=== PATIENT | male | born 1945 | race Caucasian/White ===

== ENCOUNTER 2021-01-11 14:19 | Emergency (ER) | payer MEDICARE, SELFPAY ==
[2021-01-11 14:54] VITALS: BP 136/66; PULSE 73; O2SAT 98; BMI 31.6
--- NOTE | 2021-01-11 15:32 | ED.MALEGU ---
HPI - Male Genitourinary General Chief complaint: Urogenital-Male Stated complaint: UNABLE TO URINATED Time Seen by Provider: 01/11/21 14:40 Source: certified court interpreter Mode of arrival: ambulatory Limitations: language barrier History of Present Illness HPI Narrative: 75-year-old male with a past medical history of hypertension, diabetes here with complaints of abrasions to his penis for 2 weeks. Patient tells me he has been cleaning the area with hydrogen peroxide or alcohol. Does report some slight bleeding from the abrasions and when he urinates it does burn. Patient denies any penile discharge, testicular pain or swelling, abdominal pain, difficulty urinating, fevers or chills. Related Data Previous Rx's Medication Instructions Recorded clotrimazole 1 % topical cream 1 appl TOPICAL BID #30 g 01/11/21 mupirocin 2 % topical ointment 1 appl TOPICAL BID #22 g 01/11/21 Allergies Allergy/AdvReac Type Severity Reaction Status Date / Time No Known Allergies Allergy Unverified 11/16/19 15:03 [No Known Allergies*] Review of Systems Review of Systems: Yes all other systems are reviewed and are negative Constitutional: Constitutional: Reports no additional constitutional complaints, Denies body ache(s), Denies chills, Denies fever(s), Denies headache(s) and Denies weakness Eyes: Eyes: Reports no additional eye complaints and Denies change in vision ENT: Reports system reviewed and no additional complaints, except as documented, Denies dizziness, Denies headache(s), Denies nasal congestion, Denies nasal discharge and Denies neck pain Cardiovascular: Cardiovascular: Reports no additional cardiovascular complaints, Denies chest pain, Denies leg edema and Denies dyspnea Respiratory: Respiratory: Reports no additional respiratory complaints, Denies cough and Denies dyspnea Gastrointestinal: Gastrointestinal: Reports no additional gastrointestinal complaints, Denies abdominal pain, Denies diarrhea, Denies nausea and Denies vomiting Genitourinary: Genitourinary: Denies urinary incontinence Musculoskeletal: Musculoskeletal: Reports no additional musculoskeletal complaints, Denies back pain, Denies arthralgias, Denies joint swelling, Denies neck pain, Denies numbness and Denies tingling Integumentary/Breasts: Skin/Breast: Reports system reviewed and no additional complaints, except as docu and Reports rash Neurologic: Reports system reviewed and no additional complaints, except as documented, Denies Abnormal speech present, Denies dizziness, Denies headache(s), Denies numbness, Denies tingling and Denies weakness PMFSH Past Medical History Attestation statement: The following information was validated with the patient. Source: old records reviewed and nursing notes reviewed Medical History Diabetes mellitus type 1 Hypertension Social History Social History Advance Directives: No Advance Directives Information Provided: Yes Physical Exam Vital Signs: Vital Signs: Last Vital Signs Pulse 73 01/11/21 14:54 BP 136/66 01/11/21 14:54 Pulse Ox 98 01/11/21 14:54 Body Mass Index 31.6 Const: General: cooperative, healthy appearing, comfortable and no acute distress Orientation/consciousness: patient oriented x3 Limitations: no limitations HENMT: Head: Yes normal to inspection Ears: hearing grossly normal bilaterally General nose exam: Normal external nose present Face and sinus: Yes normal facial exam Mouth: Normal oral and palatal mucosa present Throat: Yes posterior oropharynx normal Eyes: General: appearance normal, both eyes and all related structures Pupils: Equal, round and reactive pupils present Neck: Neck: Yes normal visual inspection Chest: Chest palpation & inspection: normal inspection of the chest Resp: Effort & Inspection: normal respiratory effort Auscultation: clear to auscultation bilaterally Cardio: Rate: regular rate Rhythm: regular rhythm Peripheral pulses: Peripheral pulses 2+ throughout GI: Inspection: Yes normal to inspection Palpation (GI): Soft to palpation and nontender Auscultation: normal bowel sounds : Other: To the meatus there is mild erythema, swelling, excoriation to the skin with scant thick white yeast like Penis: uncircumcised Back/Spine/Pelvis: Thoracic/Lumbar Spine: thoracic and lumbar spine normal to inspection Skin: General skin exam: no rashes or lesions noted Neuro: General: patient oriented x3, no focal motor deficits and normal sensation to monofilament Cranial nerves: Yes Equal, round and reactive pupils present Cognition (Neuro): normal cognition Speech: No Abnormal speech present Gait exam (Neuro): Normal gait present Motor exam (neuro): 5/5 motor strength present throughout Extrem: General: Yes normal to inspection Course Course Course Narrative: Exam is consistent with balanitis. Patient has no urinary symptoms or difficulty urinating. Nontoxic-appearing. The balanitis is mild. Will treat with mixture of clotrimazole and topical mupirocin. We discussed hygiene at home. Reviewed worrisome signs and symptoms of when to return to the emergency department. Comfortable discharge home. MDM - Male Genitourinary Medical Records Attestation: I reviewed the patient's medical records. Lab Data Attestation: I reviewed the patient's lab results. Discharge Plan Discharge Clinical Impression: Balanitis Patient Disposition: Home, Self-Care Instructions: Madhav (ED) Additional Instructions: Mezclar el clotrimazol y la mupirocina 1: 1 y aplicar sergio capa damian dos veces al d?a. Limpie el pene y el prepucio ?nicamente con sergio toallita tibia para beb?s. Seque. No use per?xido de hidr?tommy o alcohol en adams pene Prescriptions: New clotrimazole 1 % cream 1 appl topical BID Qty: 30 RF: 0 mupirocin 2 % ointment 1 appl topical BID Qty: 22 RF: 0 Referrals: Martha Tapia MD [Primary Care Provider] - 2 days Print Language: Lao
== END 2021-01-11 15:37 | disposition home or self-care (01) ==
PROVIDERS: Emergency Provider Emergency Medicine Emergency Medical Services; PCP General Practice
DX: N48.1 Balanitis (principal); R33.9 Retention of urine, unspecified; Z79.899 Other long term (current) drug therapy
CPT/HCPCS: 99283

== ENCOUNTER 2021-10-20 07:56 | Day surgery (SDC) | payer OTHER, SELFPAY ==
[2021-10-15 10:15] VITALS: BMI 30.7
--- NOTE | 2021-10-17 10:11 | P.CONAN_ITS ---
Documented by User: Christie Call NP 10/17/21 10:11 HPI - Anesthesia Eval Consult details Narrative: 75yo M for Colonoscopy [facility] Past Medical History Medical History Chronic renal insufficiency Diabetes mellitus type 1 Elevated cholesterol Hypertension Surgical History Surgical History H/O colonoscopy Hx of cataract extraction Social History Social History Patient Tobacco Use Status: Never used Tobacco Use of substances other than those prescribed or required for medical reasons: No Are you DNR?: No Advance Directives: No Advance Directives Information Provided: Yes Meds Allergies Allergy/AdvReac Type Severity Reaction Status Date / Time No Known Allergies Allergy Unverified 11/16/19 15:03 [No Known Allergies*] Home Medications Medication Instructions Recorded Confirmed Last Taken Type amlodipine 5 mg tablet 1 tab PO DAILY 10/15/21 10/15/21 Unknown History aspirin 81 mg tablet,delayed 81 mg PO DAILY 10/15/21 10/15/21 10/18/21 History release atorvastatin 40 mg tablet 1 tab PO DAILY 10/15/21 10/15/21 Unknown History empagliflozin 10 mg tablet 1 tab PO QAM 10/15/21 10/15/21 Unknown History (Jardiance) hydrochlorothiazide 25 mg tablet 1 tab PO DAILY 10/15/21 10/15/21 Unknown History insulin glargine 100 unit/mL (3 46 unit subcut BEDTIME 10/15/21 10/15/21 Unknown History mL) subcutaneous pen (Lantus Solostar U-100 Insulin) lisinopril 40 mg tablet 1 tab PO DAILY 10/15/21 10/15/21 Unknown History metformin 1,000 mg tablet 1 tab PO DAILY 10/15/21 10/15/21 Unknown History Exam Exam Date and Time: October 17, 2021 1011 Height,Weight and Vital Signs: Height 5 ft 8 in Weight 91.626 kg Assessment and Plan Assessment Anesthesia Assessment: Chart Reviewed Documented by User: Karan Rios MD 10/20/21 10:34 [facility] Past Medical History Medical History Chronic renal insufficiency Diabetes mellitus type 1 Elevated cholesterol Hypertension Family History Family history of problems with anesthesia: No Surgical History Surgical History H/O colonoscopy Hx of cataract extraction History of Problems with Anesthesia: No Social History Social History Patient Tobacco Use Status: Never used Tobacco Use of substances other than those prescribed or required for medical reasons: No Are you DNR?: No Advance Directives: No Advance Directives Information Provided: Yes Meds Allergies Allergy/AdvReac Type Severity Reaction Status Date / Time No Known Allergies Allergy Unverified 11/16/19 15:03 [No Known Allergies*] Home Medications Medication Instructions Recorded Confirmed Last Taken Type amlodipine 5 mg tablet 1 tab PO DAILY 10/15/21 10/15/21 Unknown History aspirin 81 mg tablet,delayed 81 mg PO DAILY 10/15/21 10/15/21 10/18/21 History release atorvastatin 40 mg tablet 1 tab PO DAILY 10/15/21 10/15/21 Unknown History empagliflozin 10 mg tablet 1 tab PO QAM 10/15/21 10/15/21 Unknown History (Jardiance) hydrochlorothiazide 25 mg tablet 1 tab PO DAILY 10/15/21 10/15/21 Unknown History insulin glargine 100 unit/mL (3 46 unit subcut BEDTIME 10/15/21 10/15/21 Unknown History mL) subcutaneous pen (Lantus Solostar U-100 Insulin) lisinopril 40 mg tablet 1 tab PO DAILY 10/15/21 10/15/21 Unknown History metformin 1,000 mg tablet 1 tab PO DAILY 10/15/21 10/15/21 Unknown History Exam Airway Mallampati Class: IV TM Dist: >3cm Neck ROM: Full Denture: Upper Loose/Missing/Broken Teeth: No (Rrr) Lungs: clear Assessment and Plan Final Anesthetic Review Family History of Problems with Anesthesia: No History of Problems with Anesthesia: No NPO: Yes ASA Class: III Final Preanesthetic Review: No Changes in Pt Med Stat, Meds/Allgs Chart Reviewed, Consent Obtained/Reviewed and Anes Risks/Benef Reviewed Patient Risk: Intermediate Procedure Risk: Low Anesthetic Plan Anesthetic Plan: MAC: Disposition: Standard PACU
[2021-10-20 10:01] VITALS: BP 142/77; PULSE 71; RESP 16; TEMP 35.8; O2SAT 98
[2021-10-20 10:03] LABS: Glucose, Whole Blood 214 mg/dL (60-115)
[2021-10-20] MEDS: Lactated Ringers 1,000 ML 100 ML IVCONT (10:10)
--- NOTE | 2021-10-20 11:19 | PM.OP ---
Brief Operative Note Date of Service: 10/20/21 Pre-op diagnosis: Screening Post-op diagnosis: other (Diverticulosis) Procedure: Colonoscopy to the cecum Surgeon: Lino King Anesthesia: MAC Was an Hair Rooting Machine Operator used for this Procedure?: No Estimated blood loss (mL): 0 Pathology: none sent Condition: stable Disposition: PACU
[2021-10-20 11:20] VITALS: BP 85/52; PULSE 60; RESP 20; O2SAT 95
[2021-10-20 11:25] VITALS: BP 93/48
[2021-10-20 11:42] VITALS: BP 114/60; PULSE 59; RESP 18; TEMP 36.3; O2SAT 95
--- NOTE | 2021-10-21 13:09 | OP_ITS ---
SURGEON: Lino King MD INDICATIONS: The patient presents for evaluation of colorectal cancer screening. Full consent has been obtained from him for this, including risks of bleeding and perforation. PREOPERATIVE DIAGNOSIS: Colorectal cancer screening. POSTOPERATIVE DIAGNOSIS: PROCEDURE PERFORMED: Colonoscopy to the cecum. ESTIMATED BLOOD LOSS: COMPLICATIONS: ANESTHESIA: Monitored anesthesia care. ASSISTANTS: SPECIMENS: POSTOPERATIVE DIAGNOSES: Colorectal cancer screening, diverticulosis, internal hemorrhoids. DESCRIPTION OF PROCEDURE: The patient was placed in the left lateral decubitus position. The digital rectal exam revealed no abnormalities. The Olympus video pediatric colonoscope was entered into the rectum and advanced easily to the cecum. Once in the cecum, I did identify a normal-appearing ileocecal valve. The majority of the cecum was visualized and appeared normal, but other portions were obscured due to some retained stool that was irrigated and suctioned away as best as possible but not completely. There was transillumination of light deep in the right lower quadrant. The scope was then slowly withdrawn assessing all mucosal surfaces carefully. Preparation throughout the remainder of the colon was very good, although again there were some small areas of stool both in the rectum and colon that could not be completely removed. However, I did not visualize any sign of polyps, colitis, or angiodysplasia. There was a mild amount of sigmoid diverticulosis. In the rectum, scope was retroflexed visualizing internal hemorrhoids, but no other pathology. The rectal mucosa appeared normal. The scope was straightened and withdrawn from the patient. He tolerated the procedure well and was returned to the recovery area in stable condition. IMPRESSION: 1. Diverticulosis. 2. Internal hemorrhoids. PLAN: Given today's negative exam, a negative colonoscopy in 2008, no GI symptoms, no family history of colon cancer, and his age, I do not think he will need any further screening colonoscopies in the future. As such, he will see me on a p.r.n. basis. He was advised to resume his aspirin and resume his normal medical regimen today. This has been discussed with his son. MD DELANEY Griffin/KIT / [id number]
== END 2021-10-20 12:35 | disposition home or self-care (01) ==
PROVIDERS: PCP General Practice; Visit Provider Internal Medicine
PROC: 0DJD8ZZ Inspection of Lower Intestinal Tract, Via Natural or Artificial Opening Endoscopic (ICD-10-PCS; CPT 45378; principal; 2021-10-20 10:40)
DX: Z12.11 Encounter for screening for malignant neoplasm of colon (principal); Z86.010 Personal history of colon polyps; K57.30 Diverticulosis of large intestine without perforation or abscess without bleeding; K64.8 Other hemorrhoids; E78.00 Pure hypercholesterolemia, unspecified; E10.22 Type 1 diabetes mellitus with diabetic chronic kidney disease; I12.9 Hypertensive chronic kidney disease with stage 1 through stage 4 chronic kidney disease, or unspecified chronic kidney disease; N18.9 Chronic kidney disease, unspecified; Z79.4 Long term (current) use of insulin; Z79.82 Long term (current) use of aspirin; Z79.899 Other long term (current) drug therapy
CPT/HCPCS: G0105; 82947

== ENCOUNTER → 2022-03-17 10:08 | Outpatient (BNVA) | payer OTHER, SELFPAY | PROVIDERS: PCP General Practice; Visit Provider Urology | DX: N48.1 Balanitis (principal) | CPT/HCPCS: 51798; 99202 ==

== ENCOUNTER 2023-01-04 10:02 | Emergency (ER) | payer OTHER, SELFPAY ==
--- NOTE | ~2023-01-04 | CT_ITS ---
EXAMINATION: CT FACIAL BONES WITHOUT CONTRAST CLINICAL INFORMATION: Pain right side of face. COMPARISON: No relevant prior imaging. TECHNIQUE: Customer Service Advisor images were obtained. CT imaging of the face was performed without contrast. Data was reformatted into multiplanar images at the acquisition workstation. This CT examination was performed using dose optimization techniques as appropriate, variously including the following: *Automated exposure control *Adjustment of mA and/or kV according to patient size (this includes techniques or standardized protocols for targeted exams where dose is matched to indication/reason for exam; i.e. extremities or head) *Use of iterative reconstruction technique DLP: 413 mGy-cm FINDINGS: Nasal bones, zygomatic arches, and pterygoid processes are intact. No acute mandibular fracture. The temporomandibular joints are grossly symmetric. There is mild mucosal thickening within the ethmoid air cells. Paranasal sinuses are otherwise well aerated. All of the major paranasal sinus and pathways are patent. The nasal septum deviates to the right and there is a rightward projecting nasal septal spur that contacts the medial surface of the right middle nasal turbinate. Globes and extraocular muscles are symmetric. No abnormal retrobulbar mass or inflammation. Lamina papyracea and orbital floors are intact. Orbital apices are unremarkable. Limited visualization of intracranial anatomy reveals no abnormal finding. Specifically no midline shift or hydrocephalus. CT/CT facial bones wo IV con IMPRESSION: Unremarkable examination in that there is no acute finding. Specifically no evidence of acute fracture. The nasal septum deviates to the right and there is a rightward projecting nasal septal spur that contacts the medial surface of the right middle nasal turbinate.
[2023-01-04 10:19] VITALS: BP 166/79; PULSE 72; RESP 18; TEMP 36.4; O2SAT 98; BMI 30.4
--- NOTE | 2023-01-04 11:24 | ED_ITS ---
HPI - General Adult General Chief complaint: Skin/Abscess/Foreign Body Stated complaint: R side facial pain Time Seen by Provider: 01/04/23 11:24 Source: patient, family (daughter) and RN notes reviewed Mode of arrival: ambulatory Limitations: no limitations History of Present Illness HPI narrative: 77 year old Indonesian speaking male with pmhx significant for diabetes and HTN presents to the ED today with complaint of right-sided facial pain x1 week. Pain is localized to the right side of his face along his cheek bone. No radiation. Rates pain intensity 10/10. Pain is exacerbated with opening his mouth and touching his face. Patient wears dentures at baseline and does not report any pain inside his mouth. He is able to swallow without difficulty. He is controlling his secretions. Denies fever, chills, temoral pain, headache, eye pain, vision changes, rashes, sinus pressure, nasal congestion, sore throat, cough, chest pain, shortness of breath. Denies recent illness. Denies pain to the left side of his face. Daughter is at bedside to aid in interpretation. Related Data Home Medications Medication Instructions Recorded Confirmed amlodipine 5 mg tablet 1 tab PO DAILY 10/15/21 10/15/21 aspirin 81 mg tablet,delayed 81 mg PO DAILY 10/15/21 10/15/21 release atorvastatin 40 mg tablet 1 tab PO DAILY 10/15/21 10/15/21 empagliflozin 10 mg tablet 1 tab PO QAM 10/15/21 10/15/21 (Jardiance) hydrochlorothiazide 25 mg tablet 1 tab PO DAILY 10/15/21 10/15/21 insulin glargine 100 unit/mL (3 46 unit subcut BEDTIME 10/15/21 10/15/21 mL) subcutaneous pen (Lantus Solostar U-100 Insulin) lisinopril 40 mg tablet 1 tab PO DAILY 10/15/21 10/15/21 metformin 1,000 mg tablet 1 tab PO DAILY 10/15/21 10/15/21 Previous Rx's Medication Instructions Recorded clotrimazole 1 % topical cream 1 appl topical BID #30 grams 01/11/21 mupirocin 2 % topical ointment 1 appl topical BID #22 grams 01/11/21 carbamazepine 100 mg 100 mg PO BID 30 days #60 caps 01/04/23 capsule,extended release [id number] Allergies Allergy/AdvReac Type Severity Reaction Status Date / Time No Known Allergies Allergy Unverified 03/17/22 10:37 [No Known Allergies*] Review of Systems 2 Review of Systems: Constitutional: No fever, chills, fatigue, night sweats, weight changes ENT/Mouth: No ear pain, hearing loss, nasal congestion, sinus pain, rhinorrhea, sore throat, +right facial pain Eyes: No eye pain, swelling, redness, vision changes, discharge Cardio: No chest pain, palpitations, MEI, orthopnea, peripheral edema Pulm: No SOB, cough, sputum, wheezing, dyspnea, hemoptysis GI: No nausea, vomiting MSK: No back pain, neck pain, joint pain, myalgias Skin: No lesions, rashes Neuro: No weakness, numbness, paresthesias, LOC, dizziness, headache All other systems reviewed and are negative. [facility] Past Medical History Attestation statement: The following information was validated with the patient. Source: old records reviewed and nursing notes reviewed Medical History Nocturia Chronic renal insufficiency Elevated cholesterol Hypertension Diabetes mellitus type 1 Surgical History Hx of cataract extraction H/O colonoscopy Social History Social History Patient Tobacco Use Status: Never used Tobacco Advance Directives: No Advance Directives Information Provided: No Physical Exam ED Vital Signs: Vital Signs - 24 hr 01/04/23 10:19 Temperature 97.6 F Pulse Rate 72 Respiratory Rate 18 Blood Pressure 166/79 H Pulse Oximetry 98 BMI result Body Mass Index 30.4 Vital signs stable, afebrile Const General: cooperative, healthy appearing, comfortable, no acute distress, alert and awake Nutritional Appearance: well nourished Orientation/consciousness: patient oriented x3 Limitations: no limitations HENMT Other: + Minimal erythema overlying the right maxilla, exquisitely tender to palpation without warmth or fluctuance. Skin overlying left maxilla normal, non TTP. + Upper and lower dentures in place. Right buccal mucosa without erythema, edema. Nontender and without fluctuance. + EOMs intact. No involvement of the periorbital region bilaterally. + Normal TMJ b/l, no tenderness, crepitus or deformity. Head: Yes normal to inspection, Yes No palpable skull fracture present, Yes atraumatic, No scalp tenderness and No Temporal artery tenderness present Ears: hearing grossly normal bilaterally, external ears normal, TM's normal bilaterally, EAC's normal, mastoids normal and no periauricular adenopathy General nose exam: Normal external nose present Face and sinus: Yes sinuses nontender Mouth: Normal oral and palatal mucosa present and moist mucous membranes Teeth and gingiva: gingiva normal Throat: Yes posterior oropharynx normal, Yes tonsils normal and Yes uvula midline Eyes General: appearance normal, both eyes and all related structures Periorbital: periorbital findings normal Conjunctivae: conjunctivae normal Sclerae: sclerae normal Pupils: Equal, round and reactive pupils present EOM: EOMs intact bilaterally Neck Neck: Yes normal visual inspection and Yes no lymphadenopathy Resp Effort & Inspection: normal respiratory effort Auscultation: clear to auscultation bilaterally Cardio Rate: regular rate Rhythm: regular rhythm Peripheral pulses: radial pulses present Back/Spine/Pelvis Other: No midline spinous tenderness. No paraspinal mm tenderness. No step off deformity. Skin General skin exam: no rashes or lesions noted Neuro Other: + Exquisitely tender to palpation over the right zygomatic branch of the facial nerve General: patient oriented x3, gait normal and moves all extremities Cranial nerves: Yes Facial sensation intact/muscles of mastication intact, Yes Equal, round and reactive pupils present, Yes Normal facial strength present and Yes Midline tongue present Motor exam (neuro): 5/5 motor strength present throughout Extrem General: Yes normal to inspection Course Course Course Narrative: 1249-- CBC without leukocytosis. Chronic stable anemia when compared to priors. CT facial bones with contrast ordered to evaluate for abscess vs osteomyelitis >> chemistry showing chronic renal insufficiency. Will re-order dry scan although not ideal. IVF running. ESR elevated likely secondary to chronic kidney disease. CRP wnl. 1400-- CT facial bones showing patent sinuses. No acute fracture of the maxilla. Noted to have a rightward deviated septum with nasal septal spur > patient does not have tenderness over the nose and this is likely not the cause of patient's symptoms. Patient and daughter informed of lab results and CT read. > Symptoms may be due to a trigeminal neuralgia given the exquisite tenderness to palpation over the zygomatic region. Will give patient dose of carbamazepine in ED. If he tolerates this well, will send 1 month rx trial with neurology f/u. Patient agreeable with this plan. 1530-- Patient tolerating carbamazepine in ED. Will send trial rx to pharmacy. Provided patient with neurology referral and advised him to f/u with his PCP as well. Discussed worrisome signs and symptoms along with return precautions. All questions answered at this time. Patient is agreeable with disposition and stable for discharge. Medications Administered Discontinued Medications Generic Name Dose Route Start Last Admin Trade Name Ángel PRN Reason Stop Dose Admin Acetaminophen 975 mg 01/04/23 12:36 01/04/23 12:43 Acetaminophen 325 Mg Tablet PO 01/04/23 12:37 975 mg ONCE ONE Administration Carbamazepine 50 mg 01/04/23 14:19 01/04/23 15:50 Carbamazepine 100 Mg Tab.Chew PO 01/04/23 14:20 50 mg ONCE ONE Administration Sodium Chloride 1,000 mls @ 999 mls/hr 01/04/23 12:00 01/04/23 13:14 Ns IV 01/04/23 13:00 Infused .Q1H1M GODFREY Infusion Medical Decision Making Medical Decision Making [facility] Narrative: 77 year old Indonesian speaking male with pmhx significant for diabetes and HTN presents to the ED today with complaint of right-sided facial pain x1 week. VSS, afebrile. On exam, there is minimal erythema overlying the right maxilla, exquisitely tender to palpation without warmth or fluctuance. Skin overlying left maxilla normal, non TTP. No malar rash. Upper and lower dentures in place. Right buccal mucosa without erythema, edema. Nontender and without fluctuance. EOMs intact b/l. No involvement of the periorbital region b/l. Normal TMJ b/l, no tenderness, crepitus or deformity. Exquisitely tender to palpation over the right zygomatic branch of the facial nerve. Clinical concern for facial cellulitis, osteomyelitis of the maxilla, sinusitis, trigeminal neuralgia, TMJ. Lower suspicion for GCA, dental abscess, periorbital or orbital cellulitis, lupus, erysipelas, rosasea. Plan for pain control, labs, inflammatory markers, imaging. Differential Diagnosis Differential Diagnoses: The differential diagnosis associated with the presentation includes As above. Admission/Observation Not indicated. Lab Data [facility] Lab Attestation statement: I reviewed the patient's lab results. As above. 01/04/23 11:58 01/04/23 11:58 Labs: Lab Results 01/04/23 Range/Units 11:58 WBC 8.0 (4.8-10.8) X10*3/uL RBC 3.77 L (4.60-5.80) X10*6/uL Hgb 11.6 L (14.0-18.0) g/dl Hct 35.3 L (42.0-52.0) % MCV 93.6 (80.0-98.0) fL MCH 30.8 (27.0-33.0) pg MCHC 32.9 (31.0-36.0) g/dl RDW 12.0 (11.0-16.0) % Plt Count 215 (160-400) X10*3/uL MPV 10.1 (9.4-12.4) fL Immature Gran % (Auto) 0.2 (0.0-0.4) % Neut % (Auto) 66.9 (45-73) % Lymph % (Auto) 22.3 (20-40) % [place] % (Auto) 8.1 (2-11) % Eos % (Auto) 2.0 (0-4) % Baso % (Auto) 0.5 (0-2) % Lymph # (Auto) 1.8 (1.2-4.9) X10*3/uL [place] # (Auto) 0.7 (0.1-1.2) X10*3/uL Eos # (Auto) 0.2 (0.0-0.4) X10*3/uL Baso # (Auto) 0.0 (0.0-0.2) X10*3/uL Abs Immat Gran (auto) 0.02 (0.00-0.03) X10*3/uL Absolute Neuts (auto) 5.4 (2.0-8.3) x10*3/uL Absolute Nucleated RBC 0.000 (0.0-0.012) X10*3/uL Nucleated RBC % (auto) 0.0 (0.0-0.2) /100WBC ESR 36 H (0-15) MM/HR Sodium 139 (135-145) mmol/L Potassium 4.2 (3.3-5.1) mmol/L Chloride 108 (96-108) mmol/L Carbon Dioxide 25 (22-29) mmol/L Anion Gap 10 L (12-20) BUN 24 H (9-16) mg/dL Creatinine 1.60 H (0.5-1.4) mg/dL Estim Creat Clear Calc 41.6 Estimated GFR 42 Random Glucose 127 H (60-115) mg/dL Calcium 9.5 (8.4-10.2) mg/dL Magnesium 1.8 (1.6-2.6) mg/dL Total Bilirubin 0.3 (0.0-1.0) mg/dL AST 15 (5-37) U/L ALT 12 (0-40) U/L Alkaline Phosphatase 62 (39-117) U/L C-Reactive Protein 0.20 (< or = 0.50) mg/dL Total Protein 7.7 (6.5-8.0) g/dL Albumin 4.0 (3.5-5.0) g/dL Independent Interpretation I performed an independent interpretation of an: CT Scan Interpretation: CT facial bones showing patent maxiallary sinuses, no fracture, agree with radiologist's interpretation. Radiology Impression Discussion of test interpretation with radiology: I have reviewed the radiologist's reading. Radiologist Impression: CT facial bones wo IV con IMPRESSION: Unremarkable examination in that there is no acute finding. Specifically no evidence of acute fracture. The nasal septum deviates to the right and there is a rightward projecting nasal septal spur that contacts the medial surface of the right middle nasal turbinate. Independent Historian Clinical information obtained from an independent historian. History obtained from or confirmed by: Other (daughter) External Record Review External record reviewed: Inpatient record Tests considered The following testing was considered but not selected: I considered ordering CT facial bones with contrast however patient has chronic renal insufficiency > dry scan ordered. Prescription Management I considered prescription management with: Pain Medication and Other (anticonvulsant) Chronic Conditions Patient?s care impacted by: Diabetes and Hypertension Critical Care Time Critical Care Time Critical Care Time: No Discharge Plan Discharge Clinical Impression: Trigeminal neuralgia Patient Disposition: Home, Self-Care Instructions: Trigeminal Neuralgia (ED) Additional Instructions: Your labs today are reassuring. The imaging of your facial bones did not show acute infection or fracture. Your symptoms may be the result of a trigeminal neuralgia. This means that the facial nerve may be causing the pain in your cheek. You were given a dose of carbamazepine in the emergency department. You tolerated this well. Carbamazepine will be sent to your pharmacy to take twice daily for nerve pain. You may also take tylenol as needed for pain. Avoid Ibuprofen due to your kidney dysfunction. You have also been provided with a referral to a neurologist. You may call them to make a follow-up appointment. They will not call you. If her symptoms persist or worsen, please return to the emergency department. In the case of an emergency call 911. Raissa an?lisis de hoy son tranquilizadores. Las im?genes de los huesos faciales no mostraron infecci?n aguda ni fractura. Raissa s?ntomas pueden ser el resultado de sergio neuralgia del trig?sarah. [place] significa que el nervio facial puede estar causando el dolor en la mejilla. Le administraron sergio dosis de carbamazepina en el servicio de urgencias. Lo toleraste natalia. Se enviar? carbamazepina a adams farmacia para que la tome dos veces al d?a para el dolor de los nervios. Tambi?n puede emmanuel tylenol seg?n sea necesario para el dolor. Evite el ibuprofeno debido a adams disfunci?n renal. Tambi?n se le colon remitido a un neur?logo. Puede llamarlos para programar sergio migue de seguimiento. No te llamar?n. Si raissa s?ntomas persisten o empeoran, regrese al departamento de emergencias. En chastity de emergencia llame al 911. Prescriptions: New carbamazepine 100 mg capsule, ER multiphase 12 hr 100 mg PO BID 30 Days Qty: 60 0RF No Action clotrimazole 1 % cream 1 appl topical BID Qty: 30 0RF mupirocin 2 % ointment 1 appl topical BID Qty: 22 0RF atorvastatin 40 mg tablet 1 tab PO DAILY amlodipine 5 mg tablet 1 tab PO DAILY aspirin 81 mg Tablet,Delayed Release (Dr/Ec) 81 mg PO DAILY metformin 1,000 mg tablet 1 tab PO DAILY hydrochlorothiazide 25 mg tablet 1 tab PO DAILY lisinopril 40 mg tablet 1 tab PO DAILY insulin glargine [Lantus Solostar U-100 Insulin] 100 unit/mL (3 mL) insulin pen 46 unit subcut BEDTIME Jardiance 10 mg tablet 1 tab PO QAM Referrals: [facility] [place] Neuro/Sleep [Provider Group] Interventions: ED Discharge Assessment Last Done: 01/04/23 15:53 Discharge Date/Time: 01/04/23 15:54 Print Language: Indonesian
--- OUTSIDE RECORDS SUMMARY | 2023-01-04 11:38 | XMS_ITS | Patient Health Record ---
Author Name Unknown Organization [facility] Address [address] [place] [address] Care Team Providers Care Health Assistant Name Role Phone Martha Tapia M.D. Primary Care Provider Lino Gomez Unavailable [phone] ALLERGIES No Known Allergies REASON FOR REFERRAL No Information MEDICATIONS Medication SIG (Take, Route, Frequency, Duration) Notes Start Date End Date Status Atorvastatin Calcium 40 MG TAKE 1 TABLET BY MOUTH EVERY DAY Oral for 90 Active amLODIPine Besylate 5 MG TAKE 1 TABLET B Y MOUTH EVERY DAY Oral for 90 Active Lisinopril 40 MG TAKE 1 TABLET BY JAYE TH EVERY DAY Oral for 90 Active hydroCHLOROthiazide 25 MG TAKE 1 TABLET BY MOUTH EVERY DAY Oral for 90 Active Dulcolax (colon prep) 5 MG take at 3:00 p.m and 7:00p.m. Orally two tablets twice a day for one day for 1 day 09/06/2021 Active Lantus SoloStar 100 UNIT/ML INJECT 46 UN ITS SUBCUTANEOUSLY AT BEDTIME Subcutaneous for 31 Active MiraLax (colon prep) 17 GM/SCOOP 1 238Gm bottle mixed with Gatorade or Crystal Light Orally begin at 5:00 p.m. the day before the procedure for 1 day 09/06/2021 Active Jardiance 10 MG TAKE 1 TABLET BY JAYE TH EVERY MORNING Oral for 90 Active Aspirin Adult Low Dose 81 MG 1 tablet Or ally Once a day for 30 day(s) Active metFORMIN HCl 1000 MG TAKE 1 TABLET BY M OUTH TWICE DAILY IN THE MORNING AND IN THE EVENING WITH MEALS Oral for 90 Active IMMUNIZATIONS Vaccine Route Administration Date Status Comme nts Influenza Unknown 10/30/2020 Administered SOCIAL HISTORY Tobacco Use: Social History Observation Description Date Details (start date - stop date) Never Smoker NA - NA Sex Assigned At : Social History Observation Description Sex Assigned At Unknown Tobacco Use/Smoking Question Answer Notes Patient is a nonsmoker Alcohol Screen Question Answer Notes Did you have a drink containing alcohol in the p ast year? No Points 0 Interpretation Negative PROBLEMS Problem Type ICD Code Onset Dates Problem Status W/U Status Risk SNOMED Code Notes Problem Encounter for screening for malignant neoplasm of colon (Z12.11) Active confirmed Screening for malignant neoplasm of colon (841290452) Problem Encounter for other preprocedural examination (Z01.818) Active confirmed Pre-procedure evaluation check (473971208) Problem alf (current) use of aspirin (Z79.82) Active confirmed Long-term c urrent use of antiplatelet drug (643571959203174) Problem Diverticulosis of colon (K57.30) Active confirmed Diverticulosi s of colon (336072856) PLAN OF TREATMENT Future Test Test Name Order Date COLONOSCOPY 09/04/2021 Insurance Providers Payer Name Payer Address Payer Phone Subscriber Number Group Number Insured Name Patient Relationship to Insured Coverage Start Date Coverage End Date [facility] [address] [address] [place] [phone] [id number] PADMINI RAJPUT Self - patient is the insured MEDICAL (GENERAL) HISTORY Medical History History ICD Code IDDM Hypertension Elevated Cholesterol B12 deficiency Chronic kidney disease Colonoscopy in 2008 with a small hyperpl astic polyp Denies DE,CVA,Lung disease,renal disease Surgical History Surgery Date(Month/Year) Lens implants and Cataratcs
[2023-01-04 12:01] LABS: MANUAL DIFF FLAG NO
[2023-01-04 12:03] LABS: Basophils Percent Auto 0.5 % (0-2); Eosinophils Absolute Auto 0.2 X10*3/uL (0.0-0.4); Hematocrit 35.3 % (42.0-52.0); Hemoglobin 11.6 g/dl (14.0-18.0); Imm Gran Abs Auto 0.02 X10*3/uL (0.00-0.03); Imm Gran Pct Auto 0.2 % (0.0-0.4); Lymphocytes Absolute Auto 1.8 X10*3/uL (1.2-4.9); Lymphocytes Percent Auto 22.3 % (20-40); Mean Corpuscular HGB Conc 32.9 g/dl (31.0-36.0); Mean Corpuscular Hemoglobin 30.8 pg (27.0-33.0); Mean Corpuscular Volume 93.6 fL (80.0-98.0); Mean Platelet Volume 10.1 fL (9.4-12.4); Monocytes Absolute Auto 0.7 X10*3/uL (0.1-1.2); Monocytes Percent Auto 8.1 % (2-11); Neutrophils Absolute Auto 5.4 x10*3/uL (2.0-8.3); Neutrophils Percent Auto 66.9 % (45-73); Platelet Count 215 X10*3/uL (160-400); Red Blood Count 3.77 X10*6/uL (4.60-5.80)
[2023-01-04] MEDS: 0.9 % Sodium Chloride 1,000 ML 999 ML IV (12:13)
--- NOTE | 2023-01-04 12:13 | PC.NURSE ---
20gIV placed in right forearm w/o complications. IV fluids administered per provider order. pt awaiting CT at this time. family bedside for support.
[2023-01-04 12:18] LABS: Alanine Aminotransferase 12 U/L (0-40); Alkaline Phosphatase 62 U/L (39-117); Anion Gap 10 (12-20); Aspartate Amino Transferase 15 U/L (5-37); Bilirubin Total 0.3 mg/dL (0.0-1.0); Blood Urea Nitrogen 24 mg/dL (9-16); Calcium 9.5 mg/dL (8.4-10.2); Carbon Dioxide 25 mmol/L (22-29); Chloride 108 mmol/L (96-108); Creatinine Clr Calc Pharmacy 41.6; Estimated Glomerular Filt Rate 42; Glucose Random 127 mg/dL (60-115); Magnesium 1.8 mg/dL (1.6-2.6); Potassium 4.2 mmol/L (3.3-5.1); Sodium 139 mmol/L (135-145); Total Protein 7.7 g/dL (6.5-8.0)
[2023-01-04] MEDS: Acetaminophen 325 MG TABLET 975 MG PO (12:43)
--- NOTE | 2023-01-04 12:44 | PC.NURSE ---
mediation administered per provider order. will reassess pain level shortly.
[2023-01-04 12:45] LABS: Erythrocyte Sedimentation Rate 36 MM/HR (0-15)
--- NOTE | 2023-01-04 14:27 | PC.NURSE ---
pharmacy called/notified that medication not available in ED - will administer when able.
[2023-01-04] MEDS: carBAMazepine 100 MG TAB.CHEW 50 MG PO (15:50)
--- NOTE | 2023-01-04 15:53 | PC.NURSE ---
medication delivered by pharmacy. IV removed. pt provided w/ d/c paperwork.
== END 2023-01-04 15:54 | disposition home or self-care (01) ==
PROVIDERS: Physician Assistant Medical; Emergency Provider Emergency Medicine; PCP General Practice
DX: G50.0 Trigeminal neuralgia (principal); R51.9 Headache, unspecified; J34.2 Deviated nasal septum; Z79.899 Other long term (current) drug therapy
CPT/HCPCS: 36415; 70486; 80053; 83735; 85025; 85652; 86140; 96360; 99284

== ENCOUNTER 2024-04-05 16:47 | Outpatient (REF) | payer OTHER, SELFPAY ==
--- OUTSIDE RECORDS SUMMARY | 2024-04-05 16:49 | XMS_ITS | Clinical Summary ---
Author Organization [facility], Address [address] [place] [address] [place] [address] Phone Care Team Providers Care Customer Service Voice Name Role Phone Deborah Rosario DO Primary Care Provider Unava ilable Allergies No known active allergies Medications amLODIPine (NORVASC) 5 MG tablet Take 1 tablet by mouth 1 (one) time each day Active hydroCHLOROthia zide (HYDRODIURIL) 25 MG tablet Take 1 tablet by mouth 1 (one) time each day Active metFORMIN (GLUCOPHAGE) 1000 MG tablet Take 1 tablet by mouth in the morning and 1 tablet in the evening. Take with meals. Active simvastatin (ZOCOR) 40 MG tablet Take 1 tablet by mouth 1 (one) time each day Active lisinopril (PRINIVIL,ZESTR IL) 40 MG tablet Take 1 tablet (40 mg total) by mouth 1 (one) time each day 90 tablet 3 09/04/2019 Active Lantus SoloStar 100 UNIT/ML injection Inject 50 Units under the skin every night 05/06/2020 Active aspirin (ST YUSRA) 81 MG EC tablet Take 81 mg by mouth 1 (one) time each day Active atorvastatin (LIPITOR) 40 MG tablet Take 40 mg by mouth 1 (one) time each day Active FeroSul 325 (65 Fe) MG tablet Take 1 tablet (325 mg total) by mouth 3 times a day 30 tablet 3 11/27/2020 Active Empagliflozin 25 MG tablet Take 25 mg by mouth 1 (one) time each day 11/27/2020 Active DULCOLAX 5 MG EC tablet TAKE 2 TABLETS BY MOUTH TWICE DAILY FOR 1 DAY AT 3PM AND 7PM 09/09/2021 Active Active Problems Problem Noted Date Diagnosed Date Essential (primary) hypertension 12/14/2020 Stage 3b chronic kidney disease 05/11/2019 Renal disorder due to type 2 diabetes mellitus 0 05/11/2019 Type 2 diabetes mellitus Resolved Problems Problem Noted Date Diagnosed Date Resolved Date Chronic kidney disease due to hypertension 05/11/2019 12/14/2020 Hyperlipidemia 05/11/2019 12/14/2020 Iron deficiency anemia 05/11/201912/14 Renal stone 05/11/2019 12/14/2020 Family History Relation Status Comments Father Mother Social History Tobacco Use Types Packs/Day Years Used Date Smoking Tobacco: Never Tobacco Cessation:Counseling Given: Not Answered Alcohol Use Standard Drinks/Week Comments No 0 (1 standard drink = 0.6 oz pur e alcohol) Sex and Gender Information Value Date Recorded Sex Assigned at Not on file Legal Sex Male 4:37 PM EST Gender Identity Not on file Sexual Orientation Not on file Last Filed Vital Signs Vital Sign Reading Time Taken Comments Blood Pressure 124/58 01/26/2022 3:26 PM EST Pulse 68 05/15/2019 2:09 PM EDT Temperature - - Respiratory Rate 16 05/15/2019 2:09 PM EDT Oxygen Saturation - - Inhaled Oxygen Concentration - - Weight 91.6 kg (202 lb) 01/26/2022 3:26 PM EST Height 172.7 cm (5' 8 ) 01/26/2022 3:26 PM EST Body Mass Index 30.71 01/26/2022 3:26 PM EST Plan of Treatment Health Maintenance Due Date Last Done Comments Pneumococcal Vaccine: 65+ Years (1 of 2 - PCV) 1951 Diabetes: Ophthalmology Exam 05/11/2019 Diabetes: Pedal Pulse Checked 05/11/2019 Diabetes: Sensory Foot Exam 05/11/2019 Diabetes: Visual Foot Exam 05/11/2019 Diabetes: Hemoglobin A1C 12/16/202109/15/2 022, 12/13/2020, 12/22/2019, Additional history exists Influenza Vaccine (#1) 2023 Hepatitis B Vaccine Aged Out No longe r eligible based on patient's age to complete this topic Procedures Procedure Name Priority Date/Time Associated Diagnosis Comments HEMOGLOBIN A1C Routine 09/15/2021 1:22 PM EDT Stage 3b chronic kidney disease (HCC) from Last 3 Months or Most Recently Relevant to Health Maintenance Results * (ABNORMAL) Hemoglobin A1c (09/15/2021 1:22 PM EDT) Hemoglobin A1C 10.7(H) (4.0-5.6) % [facility] Comment: MONITORING: In known diabetic patients, hemoglobin A1c targets should be discussed with health care provider. DIAGNOSTIC USE: ??The [place] Diabetes Association (ADA) and the World Health Organization (WHO) recommend the use of HbA1c to diagnose diabetes using a threshold of 6.5%. Patients who have an HbA1c between 5.7% and 6.4% are considered at increased risk for developing diabetes in the future. CAUTION: Falsely low HbA1c results may be observed in patients with hemolytic anemia, homozygous forms of abnormal hemoglobin (e.g. SS, CC, SC), , recent blood loss or hemoglobin F greater than 7%. Fructosamine may be used as an alternate test in these cases. REFERENCE: ADA: Standards of Medical Care in Diabetes 2020, The Journal of Clinical and Applied Research and Education Volume 43, Supplement 1 Testing performed or reported by [facility], a Service of [facility], [address] [place] [address] Suman Wheatley MD, 6Th Grade Teacher [facility]# [id number] Blood (Blood, Venous) 09/15/2021 1:22 PM EDT 09/15/2021 1:25 PM EDT us Christian Colindres MD LAB BLOOD ORDERABLES Final Resul t [facility] from Last 3 Months or Most Recently Relevant to Health Maintenance Insurance [facility] COMMUNITY PLAN DUAL [place] Care Teams Customer Service Voice Relationship Specialty Start Date End Date Deborah Rosario DO PCP - General 01/03/19
--- OUTSIDE RECORDS SUMMARY | 2024-04-05 16:49 | XMS_ITS | Encounter Summary ---
Author Organization [facility], Address [address] [place] [address] Phone Care Team Providers Care Venue Coordinator Name Role Phone Deborah Rosario DO Primary Care Provider Unava ilable Encounter Details Date Type Department Care Team (Late st Contact Info) Description 01/06/2022 Documentation Only [facility], [address] [place] [phone] Nery Ibanez PA Social History Tobacco Use Types Packs/Day Years Used Date Smoking Tobacco: Never Alcohol Use Standard Drinks/Week Comments No 0 (1 standard drink = 0.6 oz pur e alcohol) Sex and Gender Information Value Date Recorded Sex Assigned at Not on file Legal Sex Male 4:37 PM EST Gender Identity Not on file Sexual Orientation Not on file documented as of this encounter Plan of Treatment Not on file documented as of this encounter Visit Diagnoses Not on filedocumented in this encounter Care Teams Venue Coordinator Relationship Specialty Start Date End Date Deborah Rosario DO PCP - General 01/03/19 documented as of this encounter
--- OUTSIDE RECORDS SUMMARY | 2024-04-05 16:49 | XMS_ITS | Encounter Summary ---
Author Organization [facility], Address [address] [place] [address] Phone Care Team Providers Care Change Manager Name Role Phone Deborah Rosario DO Primary Care Provider Unava ilable Encounter Details Date Type Department Care Team (Late st Contact Info) Description 09/22/2021 Office Communication [facility], [address] [place] [address] Christian Colindres MD [address] [place] [address] Social History Tobacco Use Types Packs/Day Years [...] on filedocumented in this encounter Care Teams Change Manager Relationship Specialty Start Date End Date Deborah Rosario DO PCP - General 01/03/19 documented as of this encounter
[2024-04-05 18:31] LABS: MANUAL DIFF FLAG NO
[2024-04-05 19:01] LABS: Alanine Aminotransferase 24 U/L (0-40); Albumin Level 4.1 g/dL (3.5-5.0); Alkaline Phosphatase 52 U/L (39-117); Anion Gap 9 (12-20); Aspartate Amino Transferase 27 U/L (5-37); Bilirubin Total 0.1 mg/dL (0.0-1.0); Blood Urea Nitrogen 24 mg/dL (9-16); Calcium 9.3 mg/dL (8.4-10.2); Carbon Dioxide 23 mmol/L (22-29); Chloride 111 mmol/L (96-108); Cholesterol 205 mg/dL (<200); Estimated Glomerular Filt Rate 49; Glucose Random 107 mg/dL (60-115); HDL Cholesterol 43 mg/dL (>40); LDL Cholesterol Calculated 111 mg/dL (<100); Sodium 139 mmol/L (135-145); Total Protein 8.2 g/dL (6.5-8.0); Triglycerides 255 mg/dL (<150)
[2024-04-05 19:21] LABS: Basophils Percent Auto 0.5 % (0-2); Eosinophils Absolute Auto 0.3 X10*3/uL (0.0-0.4); Eosinophils Percent Auto 3.8 % (0-4); Hematocrit 37.2 % (42.0-52.0); Hemoglobin 12.3 g/dl (14.0-18.0); Imm Gran Abs Auto 0.02 X10*3/uL (0.00-0.03); Imm Gran Pct Auto 0.3 % (0.0-0.4); Lymphocytes Absolute Auto 2.3 X10*3/uL (1.2-4.9); Lymphocytes Percent Auto 28.6 % (20-40); Mean Corpuscular HGB Conc 33.1 g/dl (31.0-36.0); Mean Corpuscular Hemoglobin 30.7 pg (27.0-33.0); Mean Corpuscular Volume 92.8 fL (80.0-98.0); Mean Platelet Volume 10.8 fL (9.4-12.4); Monocytes Absolute Auto 0.6 X10*3/uL (0.1-1.2); Monocytes Percent Auto 7.5 % (2-11); Neutrophils Absolute Auto 4.7 x10*3/uL (2.0-8.3); Neutrophils Percent Auto 59.3 % (45-73); Platelet Count 283 X10*3/uL (160-400); Red Blood Count 4.01 X10*6/uL (4.60-5.80); Red Cell Distribution Width 12.4 % (11.0-16.0); White Blood Count 7.9 X10*3/uL (4.8-10.8)
[2024-04-06 07:37] LABS: ~HepC Num1 0.12 S/CO (0.00-0.79); ~Hepatitis C Antibody Nonreactive (Nonreactive)
== END 2024-04-05 16:48 | disposition home or self-care (01) ==
LOC: HO.HHCL 16:47
PROVIDERS: Visit Provider General Practice
DX: E11.9 Type 2 diabetes mellitus without complications (principal); Z79.4 Long term (current) use of insulin
CPT/HCPCS: 36415; 80053; 80061; 85025; 86803

== ENCOUNTER 2024-05-12 12:12 | Outpatient (REF) | payer MEDICARE, MEDICAID, SELFPAY ==
--- OUTSIDE RECORDS SUMMARY | 2024-05-12 13:52 | XMS_ITS | Patient Health Record ---
Author Organization [facility] Address [address] [place] [address] Care Team Providers Care Hand Cloth Examiner Name Role Phone Martha Tapia M.D. Primary Care Provider Lino Gomez Unavailable [phone] Allergies No Known Allergies Reason For Referral No Information Medications Medication SIG (Take, Route, Frequency, Duration) Notes [...] EVENING WITH MEALS Oral for 90 Active Immunizations Vaccine Route Administration Date Status Comme nts Influenza Unknown 10/30/2020 Administered Social History Tobacco Use: Social History Observation Description Date Details (start date - stop date) Never Smoker NA - NA Tobacco Use/Smoking Question Answer Notes Patient is a nonsmoker Alcohol Screen Question Answer Notes Did you have a drink containing alcohol in the p ast year? No Points 0 Interpretation Negative Section Notes: Nonsmoker; no significant al cohol use Problems Problem Type SNOMED Code ICD Code Onset Dates Problem Status W/U Status Risk Notes Problem Screening for malignant neoplasm of colon (894467979) Encounter for screening for malignant neoplasm of colon (Z12.11) Active confirmed Problem Pre-procedure evaluation check (018047639) Encounter for other preprocedural examination (Z01.818) Active confirmed Problem Long-term current use of antiplatelet drug (244475232702652) half-way (current) use of aspirin (Z79.82) Active confirmed Problem Diverticulosis of colon (180103203) Diverticulosis of colon (K57.30) Active confirmed Plan Of Treatment Future Test Test Name Order Date COLONOSCOPY 09/04/2021 Insurance Providers Payer Name Payer Address Payer Phone Subscriber Number Group Number Insured Name Patient Relationship to Insured Coverage Start Date Coverage End Date [facility] [address] [address] [place] [address] [id number] PADMINI RAJPUT Self - patient is the insured Medical (General) History Medical History History ICD Code IDDM Hypertension Elevated Cholesterol B12 deficiency Chronic kidney disease Colonoscopy in 2008 with a small hyperpl astic polyp Denies NH,CVA,Lung disease,renal disease Surgical History Surgery Date(Month/Year) Lens implants and Cataratcs
--- OUTSIDE RECORDS SUMMARY | 2024-05-12 13:52 | XMS_ITS | Encounter Summary ---
Author Organization [facility], Address [address] [place] [address] Phone Care Team Providers Care Fuel Attendant Name Role Phone Deborah Rosario DO Primary Care Provider Unava ilable Encounter Details Date Type Department Care Team (Late st Contact Info) Description 01/06/2022 Documentation Only [facility], [address] [place] [phone] Nery Ibanez PA Social History Tobacco Use [...] on filedocumented in this encounter Care Teams Fuel Attendant Relationship Specialty Start Date End Date Deborah Rosario DO PCP - General 01/03/19 documented as of this encounter
--- OUTSIDE RECORDS SUMMARY | 2024-05-12 13:52 | XMS_ITS | Encounter Summary ---
Author Organization [employer] Address [address] [place] [address] Care Team Providers Care Senior Officer Name Role Phone Martha Tapia MD Primary Care Provider [phone] Encounter Details Date Type Department Care Team (Latest Contact Info) Description 04/29/2022 Orders Only [facility] MEDICINE [address] [place], [place] [phone] Martha Tapia MD [address] [place], [place] [phone] Pure hypercholesterolemia (Primary Dx) Social History Tobacco Use Types Packs/Day Years Used Date Smoking Tobacco: Never Smokeless Tobacco: Never Alcohol Use Standard Drinks/Week Comments Never 0 (1 standard drink = 0.6 oz pur e alcohol) PHQ-2 Answer Date Recorded Patient Health Questionnaire-2 Score 0 04/27/2022 Depression Answer Date Recorded Patient Health Questionnaire-2 Score 0 04/27/2022 Sex and Gender Information Value Date Recorded Sex Assigned at Male 12/29/2021 10:17 AM EDT Legal Sex Male 10:17 AM EDT Gender Identity Male 12/29/2021 10:17 AM EDT Sexual Orientation Straight 12/29/2021 10 :17 AM EDT COVID-19 Exposure Response Date Recorded In the last 10 days, have yo u been in contact with someone who was confirmed or suspected to have Coronavirus/COVID-19? No / Unsure 04/27/2022 9:16 AM EST documented as of this encounter Plan of Treatment Not on file documented as of this encounter Procedures Procedure Name Priority Date/Time Associated Diagnosis Comments CBC WITH AUTO DIFFERENTIAL Routine 01/04/2023 11:58 AM EST Pure hypercholesterolemia SED RATE BY MODIFIED WESTERGREN Routine 01/04/2023 11:58 AM EST Pure hypercholesterolemia C-REACTIVE PROTEIN Routine 01/04/2023 11:58 AM EST Pure hypercholesterolemia MAGNESIUM Routine 01/04/2023 11:58 AM EST Pure hypercholesterolemia COMPREHENSIVE METABOLIC PANEL Routine 01/04/2023 11:58 AM EST Pure hypercholesterolemia documented in this encounter Results * (ABNORMAL) Sed Rate by Modified Westergren (01/04/2023 11:58 AM EST) Erythrocyte Sedimentation Rate 36(H) 0 - 15 MM/HR [facility] Comment:Patients with polycy themia and many hemoglobin abnormalitiesmay have depressed sed rates whereas patients with anemiamay have elevated sed rates. 01/04/2023 11:5 8 AM EST 01/04/2023 12:00 PM EST us Generic External Data Provider LAB BLOOD ORDERAB LES Final Result Performing Organization Address [facility]/ZIP Co de Phone Number [facility] [address] [place] [phone] * C-reactive Protein (01/04/2023 11:58 AM EST) C Reactive Protein 0.20 < or = 0.50 mg/dL [facility] 01/04/2023 11:5 8 AM EST 01/04/2023 12:00 PM EST us Generic External Data Provider LAB BLOOD ORDERAB LES Final Result Performing Organization Address City/[facility] Co de Phone Number [facility] [address] [place] [phone] * Magnesium (01/04/2023 11:58 AM EST) Magnesium 1.8 1.6 - 2.6 mg/dL [facility] 01/04/2023 11:5 8 AM EST 01/04/2023 12:00 PM EST us Generic External Data Provider LAB BLOOD ORDERAB LES Final Result [facility] [address] [place] [phone] * (ABNORMAL) Comprehensive Metabolic Panel (01/04/2023 11:58 AM EST) Sodium 139 135 - 145 mmol/L [facility] Potassium 4.2 3.3 - 5.1 mmol/L [facility] Chloride 108 96 - 108 mmol/L [facility] Carbon Dioxide 25 22 - 29 mmol/L [facility] Anion Gap 10(L) 12 - 20 [facility] Urea Nitrogen (BUN) 24(H) 9 - 16 mg/dL [facility] Creatinine, Serum 1.60(H) 0.5 - 1.4 mg/dL [facility] Creatinine Clr Calc Pharmacy 41.6 [facility] Comment:eGFR (calculated fro m the MDRD study equation) and eCrCl(calculated from the Cockcroft-Gault equation) are based ondifferent parameters and may not yield comparable results.If eCrCl result is absurd, please check patient'sheight/weight. Estimated Glomerular Filt Rate 42 [facility] Comment:NOTE: For -Am erican individuals, multiply the result by 1.210.Chronic Kidney Disease: Estimated GFR < 60 mL/min/1.14b4Yljkgf Kidney Disease: Estimated GFR < 15 mL/min/1.73m2 Glucose 127(H) 60 - 115 mg/dL [facility] Calcium 9.5 8.4 - 10.2 mg/dL [facility] Bilirubin, Total 0.3 0.0 - 1.0 mg/dL [facility] Aspartate Amino Transferase 15 5 - 37 U/L [facility] Alanine Aminotransferase 12 0 - 40 U/L [facility] Total Protein 7.7 6.5 - 8.0 g/dL [facility] Albumin Level 4.0 3.5 - 5.0 g/dL [facility] Alkaline Phosphatase 62 39 - 117 U/L [facility] 01/04/2023 11:5 8 AM EST 01/04/2023 12:00 PM EST us Generic External Data Provider LAB BLOOD ORDERAB LES Final Result [facility] [address] [place] [phone] * (ABNORMAL) CBC auto differential (01/04/2023 11:58 AM EST) White Blood Count 8.0 4.8 - 10.8 X10*3/uL [facility] Red Blood Count 3.77(L) 4.60 - 5.80 X10*6/uL [facility] Hemoglobin 11.6(L) 14.0 - 18.0 g/dl [facility] Hematocrit 35.3(L) 42.0 - 52.0 % [facility] Mean Corpuscular Volume 93.6 80.0 - 98.0 fL [facility] Mean Corpuscular Hemoglobin 30.8 27.0 - 33.0 pg [facility] Mean Corpuscular HGB Conc 32.9 31.0 - 36.0 g/dl [facility] Red Cell Distribution Width 12.0 11.0 - 16.0 % [facility] Platelet Count 215 160 - 400 X10*3/uL [facility] Mean Platelet Volume 10.1 9.4 - 12.4 fL [facility] Neutrophils Percent Auto 66.9 45 - 73 % [facility] Imm Gran Pct Auto 0.2 0.0 - 0.4 % [facility] Lymphocytes Percent Auto 22.3 20 - 40 % [facility] Monocytes Percent Auto 8.1 2 - 11 % [facility] Eosinophils Percent Auto 2.0 0 - 4 % [facility] Basophils Percent Auto 0.5 0 - 2 % [facility] NRBC Pct Auto 0.0 0.0 - 0.2 /100WBC [facility] Neutrophils Absolute Auto 5.4 2.0 - 8.3 x10*3/uL [facility] Imm Gran Abs Auto 0.02 0.00 - 0.03 X10*3/uL [facility] Lymphocytes Absolute Auto 1.8 1.2 - 4.9 X10*3/uL [facility] Monocytes Absolute Auto 0.7 0.1 - 1.2 X10*3/uL [facility] Eosinophils Absolute Auto 0.2 0.0 - 0.4 X10*3/uL [facility] Basophils Absolute Auto 0.0 0.0 - 0.2 X10*3/uL [facility] NRBC Abs Auto 0.000 0.0 - 0.012 X10*3/uL [facility] 01/04/2023 11:5 8 AM EST 01/04/2023 12:00 PM EST us Generic External Data Provider LAB BLOOD ORDERAB LES Final Result Performing Organization Address City/State/[facility] Co de Phone Number [facility] [address] [place] [phone] documented in this encounter Visit Diagnoses Diagnosis Pure hypercholesterolemia- Primary documented in this encounter Care Teams Senior Officer Relationship Specialty Start Date End Date Martha Tapia MD [address] [place] [phone] PCP - General Family Medicine 02/08/20 documented as of this encounter
--- OUTSIDE RECORDS SUMMARY | 2024-05-12 13:52 | XMS_ITS | Encounter Summary ---
Author Organization [facility], Address [address] [place] [address] Phone Care Team Providers Care Jute Bag Sewer Name Role Phone Deborah Rosario DO Primary Care Provider Unava ilable Encounter Details Date Type Department Care Team (Late st Contact Info) Description 09/22/2021 Office Communication [facility], [address] [place] [address] Christian Colindres MD [address] [place] [address] Social History Tobacco Use Types [...] on filedocumented in this encounter Care Teams Jute Bag Sewer Relationship Specialty Start Date End Date Deborah Rosario DO PCP - General 01/03/19 documented as of this encounter
--- OUTSIDE RECORDS SUMMARY | 2024-05-12 13:52 | XMS_ITS | Encounter Summary ---
Author Organization [employer] Address [address] [place] [address] Care Team Providers Care Oil Distributor Name Role Phone Martha Tapia MD Primary Care Provider Encounter Details Date Type Department Care Team (Latest Contact Info) Description 03/03/2024 Orders Only [facility] MEDICINE [address] [place], [place] [phone] Martha Tapia MD [address] [place], [place] [phone] Type 2 diabetes mellitus without complication, with long-term current use of insulin ([facility]); Pure hypercholesterolemia Social History Tobacco Use Types Packs/Day Years Used Date Smoking Tobacco: Never Smokeless Tobacco: Never Alcohol Use Standard Drinks/Week Comments Never 0 (1 standard drink = 0.6 oz pur e alcohol) PHQ-2 Answer Date Recorded Patient Health Questionnaire-2 Score 0 04/27/2022 Housing Stability Answer Date Recorded What is your housing situation today? I have rohitdeisy adames 01/04/[address] you li ve. Do you have problems with any of the following? None of the above 01/04/2023 Food Insecurity Answer Date Recorded Within the past 12 months, y ou worried that your food would run out before you got money to buy more: Never True 01/04/2023 Within the past 12 months,th e food you bought just didn't last and you didn't have enough money to get more: Never True 07/2022 Transportation Answer Date Recorded In the past 12 months, has l ack of transportation kept you from medical appts, meetings, work or from getting things needed for daily living? Yes, it has kept me from medical appointments or getting medications. 2022 Utilities Answer Date Recorded In the past 12 months, has t he electric, gas, oil or water company threatened to shut off services in your home? No 01/04/2023 Depression Answer Date Recorded Patient Health Questionnaire-2 Score 0 04/27/2022 Sex and Gender Information Value Date Recorded Sex Assigned at Male 12/29/2021 10:17 AM EDT Legal Sex Male 10:17 AM EDT Gender Identity Male 12/29/2021 10:17 AM EDT Sexual Orientation Straight 12/29/2021 10 :17 AM EDT documented as of this encounter Plan of Treatment Not on file documented as of this encounter Visit Diagnoses Diagnosis Type 2 diabetes mellitus without complication, with long-term current use of insulin ([facility]) Pure hypercholesterolemia documented in this encounter Care Teams Oil Distributor Relationship Specialty Start Date End Date Mratha Tapia MD [address] [place] [address] PCP - General Family Medicine 02/08/20 documented as of this encounter
--- OUTSIDE RECORDS SUMMARY | 2024-05-12 13:52 | XMS_ITS | Clinical Summary ---
Author Organization [facility], Address [address] [place] [address] [place] [address] Phone Care Team Providers Care Blacksmith Hammer Operator Name Role Phone Deborah Rosario DO Primary [...] PM EDT) Hemoglobin A1C 10.7(H) (4.0-5.6) % [facility] Comment: MONITORING: In known diabetic patients, hemoglobin A1c targets should be discussed with health care provider. DIAGNOSTIC USE: ??The [place] Diabetes Association (ADA) and the World Health [...] Supplement 1 Testing performed or reported by [facility], a Service of [facility], [address] [place] [address] Suman Wheatley MD, Forcer Maker [facility]# [id number] Blood (Blood, Venous) 09/15/2021 1:22 PM EDT 09/15/2021 1:25 PM EDT us Christian Colindres MD LAB BLOOD ORDERABLES Final Resul t [facility] from Last 3 Months or Most Recently Relevant to Health Maintenance Insurance [facility] COMM[facility]ITY PLAN DUAL [place] Care Teams Blacksmith Hammer Operator Relationship Specialty Start Date End Date Deborah Rosario DO PCP - General 01/03/19
--- OUTSIDE RECORDS SUMMARY | 2024-05-12 13:52 | XMS_ITS | Clinical Summary ---
Author Organization [employer] Address [address] [place] [address] 7[address] [place] [address] Care Team Providers Care Spare Hand Carding Name Role Phone Martha Tapia MD Primary Care Provider [phone] Allergies No known active allergies Medications glucose blood (OneTouch Ultra) test stripIndications:Type 2 diabetes mellitus with other specified complication, unspecified whether technician terminal and repeater insulin use ([facility]) USE 1 Each by DIRECTED route 4 times every day 100 each 11 023 Active aspirin (Aspirin Adult Low Dose) 81 MG EC tablet daily. 017 Active hydrocortisone 1 % lotion Apply topically every 12 (twelve) hours. 022 Active Lancets (OneTouch Delica Plus Lhyewv32K) misc TEST BLOOD SUGAR FOUR TIMES DAILY 022 Active Pentips Generic Pen Raymond 32G X 4 MM miscIndications:Type 2 diabetes mellitus with stage 3b chronic kidney disease, with long-term current use of insulin ([facility]) USE WITH INSULIN DAILY 100 each 3 025 Active ferrous sulfate 325 (65 Fe) MG tabletIndications:Normo cytic anemia Take 1 tablet (325 mg) by mouth with breakfast. 90 tablet 3 025 Active insulin glargine (Lantus SoloStar) 100 UNIT/ML penIndications:Type 2 diabetes mellitus without complication, with long-term current use of insulin ([facility]) INJECT 50 UNITS SUBCUTANEOUSLY AT BEDTIME 15 mL 11 025 Active metFORMIN (Glucophage) 1000 MG tabletIndications:Type 2 diabetes mellitus with stage 3b chronic kidney disease, with long-term current use of insulin ([facility]) TAKE 1 TABLET BY MOUTH TWICE DAILY IN THE MORNING AND IN THE EVENING WITH MEALS 180 tablet 3 025 Active polyethylene glycol, PEG, 3350 (Glycolax) 17 GM/SCOOP powder Take 17 g by mouth Once per day. 510 g 1 025 Active hydroCHLOROthiazide (HYDRODiuril) 25 MG tabletIndications:Essen tial hypertension Take 1 tablet (25 mg) by mouth Once per day. 90 tablet 3 025 Active empagliflozin (Jardiance) 25 MGIndications:Type 2 diabetes mellitus with stage 3b chronic kidney disease, with long-term current use of insulin ([facility]) Take 1 tablet (25 mg) by mouth in the morning. 90 tablet 3 025 Active lisinopril 40 MG tabletIndications:Essen tial hypertension Take 1 tablet (40 mg) by mouth Once per day. 90 tablet 3 025 Active amLODIPine (Norvasc) 5 MG tabletIndications:Essen tial hypertension Take 1 tablet (5 mg) by mouth Once per day. 90 tablet 3 025 Active atorvastatin (Lipitor) 80 MG tabletIndications:Pure hypercholesterolemia Take 1 tablet (80 mg) by mouth Once per day. 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 Normocytic anemia 01/19/2012 Assessment & Plan (04/07/2024 12:25 PM EST): H/H 12.3/37 today Stable, normocytic back for several years Assessment & Plan (04/29/2022 6:04 AM EST): H/H 12.4/39 today stable Standard chest x-ray abnormal 01/19/2012 Essential hypertension 08/13/2011 Assessment & Plan (04/07/2024 12:19 PM EST): Restart hydrochlorothiazide Monitor BMP in 2-4 weeks Assessment & Plan (04/29/2022 6:01 AM EST): At goal Continue current regimen Pure hypercholesterolemia 08/13/2011 Assessment & Plan (04/29/2022 6:04 AM EST): Need to increase Atorvastatin LDL 145, goal in DM2 <100 Type 2 diabetes mellitus wit h stage 3b chronic kidney disease, with long-term current use of insulin 07/31/2011 Assessment & Plan (04/07/2024 12:20 PM EST): Current A1c:8.7 BMP: Cr 1.4/eGFR 49 Microalbumin: none Foot Exam: Complete at follow up Eye Exam: [facility] Lipid panel: total 214, LD 145, HDL 39 ASCVD: The 10-year ASCVD risk score (Tyree BANUELOS, et al., 2019) is: 70.3% Values used to calculate the score: Age: 78 years Sex: Male Is Non- : No Diabetic: Yes Tobacco smoker: No Systolic Blood Pressure: 153 mmHg Is BP treated: Yes HDL Cholesterol: 43 mg/dL Total Cholesterol: 205 mg/dL Statin: Yes ASA: Yes JODIE/ARB: Yes Encouraged regular aerobic exercise for improved glycemic control Encouraged daily foot checks Encouraged lean protein snacks and to avoid foods high in sugar and simple carbohydrates Treatment Goals: A1c goal: <7% FBG goal: <130 2 hour post prandial goal: <180 Assessment & Plan (04/29/2022 6:04 AM EST): Current A1c: 7.1 BMP: Cr 1.7/eGFR 41 Microalbumin: none Foot Exam: Complete at follow up Eye Exam: call [facility] Lipid panel: total 214, LD 145, HDL 39 ASCVD: Calculate pending updated labs Statin: Yes ASA: Yes JODIE/ARB: Yes Encouraged regular aerobic exercise for improved glycemic control Encouraged daily foot checks Encouraged lean protein snacks and to avoid foods high in sugar and simple carbohydrates Treatment Goals: A1c goal: <7% FBG goal: <130 2 hour post prandial goal: <180 Resolved Problems Problem Noted Date Diagnosed Date Resolved Date Screening for malignant neoplasm of colon 03/03/2024 04/07/2024 Encounters Date Type Department Care Team Description 04/26/[address] [facility] [address] [place] [phone] Martha Tapia MD lab results request 04/07/[address] [address] Iveth Rios, ANASTASIIA Results 04/05/2024 4:00 PM EST Office Visit [address] [address] Martha Tapia MD Essential hypertension (Primary Dx); Type 2 diabetes mellitus without complication, with long-term current use of insulin ([facility]); Type 2 diabetes mellitus with stage 3b chronic kidney disease, with long-term current use of insulin ([facility]); Dietary counseling; Exercise counseling; Overweight; Pure hypercholesterolemia; Weak urinary stream; Normocytic anemia 04/05/2024 Travel 03/23/2024 Patient Outreach [address] [address] Martha Tapia MD Pre-visit Planning ((Unable to reach for PVP screening and or LVM)) 03/03/[address] [facility] [address] [place], [place] [phone] Martha Tapia MD Type 2 diabetes mellitus with stage 3b chronic kidney disease, with long-term current use of insulin ([facility]) 03/03/2024 Orders Only [address] [address] Martha Tapia MD Type 2 diabetes mellitus without complication, with long-term current use of insulin ([facility]); Pure hypercholesterolemia 03/03/[address] [facility] [address] [place] [phone] Cony Leo RN Out of Medications 03/03/[address] [address] Martha Tapia MD Triage from Last 3 Months Immunizations Name Administration Dates Next Due Hep A, Adult 01/19/2012,03/04/2011 Hep B, adult 06/11/2011,04/07/2011,03/04/2011 Influenza High-dose Quadriva lent Preservative Free 11/27/2020,01/02/2020 Influenza Injectable Quadriv alant Preservative Free IIV4 MDCK 12/29/2021 Influenza injectable quadriv alent IIV4 with preservative 12/15/2016,12/06/2014 Influenza, High Dose Seasona l, Preservative Free 03/28/2019,12/13/2017 Influenza, IIV3, injectable 10/30/2020, 4,03/04/2011 Influenza, Split (incl. elaine fied surface antigen) 11/24/2012,11/27/2011 Pneumococcal Conjugate PCV 20 10/28/2021 Pneumococcal Polysaccharide PPSV23 10/19/2003 TD (adult), 2 Lf tetanus tox oid, preservative free, adsorbed 10/19/2003 Tdap 01/19/2012 Zoster, Recombinant 12/29/2021,10/28/2021 Zoster, live 01/19/2012 Social History Tobacco Use Types Packs/Day Years Used Date Smoking Tobacco: Never Smokeless Tobacco: Never Tobacco Cessation:Counseling Given: Not Answered Alcohol Use Standard Drinks/Week Comments Never 0 (1 standard drink = 0.6 oz pur e alcohol) PHQ-2 Answer Date Recorded Patient Health Questionnaire-2 Score 0 04/27/2022 Housing Stability Answer Date Recorded What is your housing situation today? I have rohit adames 01/04/[address] you [...] Orientation Straight 12/29/2021 10 :17 AM EDT Last Filed Vital Signs Vital Sign Reading Time Taken Comments Blood Pressure 153/76 04/05/2024 4:06 PM EST Pulse 65 04/05/2024 4:06 PM EST Temperature 36.1 ??C (96.9 ??F) 04/05/2024 4:06 PM ES T Respiratory Rate 20 04/05/2024 4:06 PM EST Oxygen Saturation 96% 04/27/2022 10:04 AM EST Inhaled Oxygen Concentration - - Weight 88.7 kg (195 lb 9.6 oz) 04/05/2024 4:06 P M EST Height 172.7 cm (5' 8 ) 04/05/2024 4:06 PM EST Body Mass Index 29.74 04/05/2024 4:06 PM EST Plan of Treatment Health Maintenance Due Date Last Done Comments Diabetes: Foot Exam 1954 Eye Exam 1954 Alcohol/Substance Use Screening 1957 Hepatitis B Vaccines (3 of 3 - 19+ 3-dose series) 09/02/2011 06/11/2011, 04/07/2011, 03/04/2011 RSV Patients and Patients Aged 60 years or older (1 - 1-dose 75+ series) 12/09/2019 DTaP/Tdap/Td Vaccines (2 - Td or Tdap) 01/18/2022 01/19/2012, 10/19/2003 Depression Screening 04/27/2023 04/27/2022, 04/27/19 23 SDOH Screening 04/27/2023 04/27/2022 COVID-19 Vaccine ( season) 2023 02/26/2021, 05/10/2020, 04/12/2020 Influenza Vaccine (#1) 2023 , 11/27/2020, 10/30/2020, Additional history exists Diabetes: Hemoglobin A1C 07/03/2024 025, 04/27/2022, 10/17/2021, Additional history exists Lipid Panel 04/05/2025 04/05/2024, 04/02, 09/11/2021, Additional history exists Tobacco Screening 04/07/2025 04/07/2024 Hepatitis A Vaccines Aged Out 01/19/2012, 03/04/19 12 No longer eligible based on patient's age to complete this topic Pneumococcal Vaccine: 50+ Years Completed 10/28/2021, 10/19/2003 Zoster Vaccines Completed 12/29/2021, 10/01, 01/19/2012 Hepatitis C Screening Completed 04/05/2024 HIB Vaccines Aged Out No longer eligi ble based on patient's age to complete this topic HPV Vaccines Aged Out No longer eligi ble based on patient's age to complete this topic IPV Vaccines Aged Out No longer eligi ble based on patient's age to complete this topic Meningococcal Vaccine Aged Out No anuel marleen eligible based on patient's age to complete this topic RSV under 20 months Aged Out No longe r eligible based on patient's age to complete this topic Rotavirus Vaccines Aged Out No longer eligible based on patient's age to complete this topic Procedures Procedure Name Priority Date/Time Associated Diagnosis Comments CBC WITH AUTO DIFFERENTIAL Routine 04/05/2024 4:49 PM EST Type 2 diabetes mellitus without complication, with long-term current use of insulin (CMS/HCC) HEPATITIS C AB W/REFL TO HCV RNA, QN, PCR Routine 04/05/2024 4:49 PM EST Type 2 diabetes mellitus without complication, with long-term current use of insulin (CMS/HCC) COMPREHENSIVE METABOLIC PANEL Routine 04/05/2024 4:49 PM EST Type 2 diabetes mellitus without complication, with long-term current use of insulin (CMS/HCC) LIPID PANEL, STANDARD Routine 04/05/2024 4:49 PM EST Type 2 diabetes mellitus without complication, with long-term current use of insulin ([facility]) POCT GLYCATED HEMOGLOBIN, TOTAL Routine 04/05/2024 4:08 PM EST Type 2 diabetes mellitus without complication, with long-term current use of insulin ([facility]) POCT GLUCOSE Routine 04/05/2024 4:07 PM EST Type 2 diabetes mellitus without complication, with long-term current use of insulin ([facility]) from Last 3 Months Results * (ABNORMAL) CBC auto differential (04/05/2024 4:49 PM EST) White Blood Count 7.9 4.8 - 10.8 X10*3/uL [facility] Red Blood Count 4.01(L) 4.60 - 5.80 X10*6/uL [facility] Hemoglobin 12.3(L) 14.0 - 18.0 g/dl [facility] Hematocrit 37.2(L) 42.0 - 52.0 % [facility] Mean Corpuscular Volume 92.8 80.0 - 98.0 fL [facility] Mean Corpuscular Hemoglobin 30.7 27.0 - 33.0 pg [facility] Mean Corpuscular HGB Conc 33.1 31.0 - 36.0 g/dl [facility] Red Cell Distribution Width 12.4 11.0 - 16.0 % [facility] Platelet Count 283 160 - 400 X10*3/uL [facility] Mean Platelet Volume 10.8 9.4 - 12.4 fL [facility] Neutrophils Percent Auto 59.3 45 - 73 % [facility] Imm Gran Pct Auto 0.3 0.0 - 0.4 % [facility] Lymphocytes Percent Auto 28.6 20 - 40 % [facility] Monocytes Percent Auto 7.5 2 - 11 % [facility] Eosinophils Percent Auto 3.8 0 - 4 % [facility] Basophils Percent Auto 0.5 0 - 2 % [facility] NRBC Pct Auto 0.0 0.0 - 0.2 /100WBC [facility] Neutrophils Absolute Auto 4.7 2.0 - 8.3 x10*3/uL [facility] Imm Gran Abs Auto 0.02 0.00 - 0.03 X10*3/uL [facility] Lymphocytes Absolute Auto 2.3 1.2 - 4.9 X10*3/uL [facility] Monocytes Absolute Auto 0.6 0.1 - 1.2 X10*3/uL [facility] Eosinophils Absolute Auto 0.3 0.0 - 0.4 X10*3/uL [facility] Basophils Absolute Auto 0.0 0.0 - 0.2 X10*3/uL [facility] NRBC Abs Auto 0.000 0.0 - 0.012 X10*3/uL [facility] Blood Venous blood specimen / Unknown 04/05/2024 4:49 PM EST 04/05/2024 6:27 PM EST Martha Tapia MD LAB BLOOD ORDERABLES Final Res ult Performing Organization Address City/[facility]/ZIP Co de Phone Number [facility] [address] [place] [phone] * Hepatitis C Antibody with Reflex to HCV, RNA, Quantitative, Real-Time PCR (04/05/2024 4:49 PM EST) Hepatitis C Antibody Nonreactive Nonreactive [facility] Comment:Antibodies to HCV no t detected; does not exclude early acuteHCV infection. Blood Venous blood specimen / Unknown 04/05/2024 4:49 PM EST 04/05/2024 6:27 PM EST Martha Tapia MD LAB BLOOD ORDERABLES Final Res ult Performing Organization Address City/[facility]/ZIP Co de Phone Number [facility] [address] [place] [phone] * (ABNORMAL) Lipid Panel, Standard (04/05/2024 4:49 PM EST) Triglycerides 255(H) <150 mg/dL [facility] Comment:Slight Lipemia.Karime able Triglyceride: less than 150 mg/dLBorderline High Triglyceride 150-199 mg/dLHigh Triglyceride: 200-499 mg/dLVery High Triglyceride: greater than or equal to 5OO mg/dL Cholesterol 205(H) <200 mg/dL [facility] Comment:Desirable Cholestero l: less than 200 mg/dLBorderline High Cholesterol: 200-239 mg/dLHigh Cholesterol: greater than 239 mg/dL LDL Cholesterol Calculated 111(H) <100 mg/dL [facility] Comment:Desirable LDL: less than 100 mg/dLNear Optimal/Above Optimal LDL: 110- 129 mg/dLBorderline High LDL: 130-159 mg/dLHigh LDL: 160-189 mg/dLVery High LDL: greater than or equal to 190 mg/dL HDL Cholesterol 43 >40 mg/dL [facility] Comment:Desirable HDL: great er than 40 mg/dL Note: This HDL assay may give artificially low results in patients with liver disease. Blood Venous blood specimen / Unknown 04/05/2024 4:49 PM EST 04/05/2024 6:27 PM EST us Martha Tapia MD LAB BLOOD ORDERABLES Final Res ult [facility] [address] [place] [phone] * (ABNORMAL) Comprehensive Metabolic Panel (04/05/2024 4:49 PM EST) Sodium 139 135 - 145 mmol/L [facility] Potassium 4.0 3.3 - 5.1 mmol/L [facility] Chloride 111(H) 96 - 108 mmol/L [facility] Carbon Dioxide 23 22 - 29 mmol/L [facility] Anion Gap 9(L) 12 - 20 [facility] Urea Nitrogen (BUN) 24(H) 9 - 16 mg/dL [facility] Creatinine, Serum 1.40 0.5 - 1.4 mg/dL [facility] Estimated Glomerular Filt Rate 49 [facility] Comment:Chronic Kidney Disea se: Estimated GFR < 60 mL/min/1.03a2Disyac Kidney Disease: Estimated GFR < 15 mL/min/1.73m2 Glucose 107 60 - 115 mg/dL [facility] Calcium 9.3 8.4 - 10.2 mg/dL [facility] Bilirubin, Total 0.1 0.0 - 1.0 mg/dL [facility] Aspartate Amino Transferase 27 5 - 37 U/L [facility] Alanine Aminotransferase 24 0 - 40 U/L [facility] Total Protein 8.2(H) 6.5 - 8.0 g/dL [facility] Albumin Level 4.1 3.5 - 5.0 g/dL [facility] Alkaline Phosphatase 52 39 - 117 U/L [facility] Blood Venous blood specimen / Unknown 04/05/2024 4:49 PM EST 04/05/2024 6:27 PM EST Martha Tapia MD LAB BLOOD ORDERABLES Final Res ult [facility] [address] [place] [phone] * (ABNORMAL) POCT HGB A1C (04/05/2024 4:08 PM EST) Hemoglobin A1C 8.7(A) 4.0 - 6.0 % Blood 04/05/2024 4:08 PM EST Martha Tapia MD POINT OF CARE TEST ENTER/EDIT ORDERABLES Final Result * POCT Glucose (04/05/2024 4:07 PM EST) Glucose Blood, POC 124 60 - 200 mg/dL QC Media Lot # [id number] Lot# Expiration Date Blood Capillary blood specimen / Unknown 04/05/2024 4:07 PM EST Martha Tapia MD POINT OF CARE TEST ENTER/EDIT ORDERABLES Final Result from Last 3 Months Insurance MEDICARE Care Teams Spare Hand Carding Relationship Specialty Start Date End Date Martha Tapia MD [address] [place], [place] PCP - General Family Medicine 02/08/20
--- OUTSIDE RECORDS SUMMARY | 2024-05-12 13:52 | XMS_ITS | Encounter Summary ---
Author Organization [employer] Address [address] [facility] [address] [place] [address] Care Team Providers Care Bond Trader Name Role Phone Martha Tapia MD Primary Care Provider [phone] Reason for Visit * Reason Onset Date Comments lab results request 04/26/2024 Encounter Details Date Type Department Care Team ([facility] Contact Info) Description 04/26/2024 Telephone [facility] [address] [place], [place] [phone] Martha Tapia MD [address] [place], [place] [phone] lab results request Social History Tobacco Use Types Packs/Day Years [...] AM EDT documented as of this encounter Miscellaneous Notes * Telephone Encounter - Iveth Rios RN - 04/27/2024 9:07 AM EST TC placed to patient [phone] in regards to below message. No answer, VM is not set up yet, RN unable to leave VM. TC placed to daughter [phone] the wireless caller you are calling is not available . Patient to f/u PRN. Of note, letter was sent in regards to below results: ----- Message from Martha Tapia MD sent at 04/07/2024 12:23 PM EST ----- Please let patient know that his labs mostly came back well, except that he is anemic and his cholesterol is high. He needs to take his cholesterol medication and eat low-fat diet. He is ok to restart the hydrochlorothiazide, his electrolytes and kidneys are well. We will recheck his BMP in 2-4 weeks to ensure his kidneys can still tolerate diuretics. * Telephone Encounter - Misty Garcia RN - 04/26/2024 5:16 PM EST Incoming call on the Critical line ar 4:48pm today .Pt states he received a letter regarding his lab results . Pt states he would like to be transferred to the Red team . [facility] . No one was able to take his call . Pt was advised a message will be sent to the red team nurses . documented in this encounter Plan of Treatment Not on file documented as of this encounter Visit Diagnoses Not on filedocumented in this encounter Care Teams Bond Trader Relationship Specialty Start Date End Date Martha Tapia MD [address] [place] [address] PCP - General Family Medicine 02/08/20 documented as of this encounter
[2024-05-12 14:04] LABS: Anion Gap 12 (12-20); Blood Urea Nitrogen 35 mg/dL (9-16); Calcium 10.3 mg/dL (8.4-10.2); Carbon Dioxide 25 mmol/L (22-29); Chloride 108 mmol/L (96-108); Estimated Glomerular Filt Rate 42; Glucose Random 136 mg/dL (60-115); Sodium 140 mmol/L (135-145)
== END 2024-05-12 12:13 | disposition home or self-care (01) ==
LOC: HO.HHCL 12:12
PROVIDERS: Visit Provider General Practice
DX: I10 Essential (primary) hypertension (principal)
CPT/HCPCS: 36415; 80048

== ENCOUNTER 2024-06-01 09:17 | Outpatient (AMB) | payer MEDICARE, MEDICAID, SELFPAY ==
--- OUTSIDE RECORDS SUMMARY | 2024-06-01 09:42 | XMS_ITS | Patient Health Record ---
Author Organization [facility] Address [address] [place] [address] Care Team Providers Care Grant Manager Name Role Phone Martha Tapia M.D. Primary Care Provider Lino Gomez Unavailable [phone] Allergies No Known Allergies Reason For Referral [...] Problem Screening for malignant neoplasm of colon (666184479) Encounter for screening for malignant neoplasm of colon (Z12.11) Active confirmed Problem Pre-procedure evaluation check (440836640) Encounter for other preprocedural examination (Z01.818) Active confirmed Problem Long-term current use of antiplatelet drug (093189222646639) [facility] (current) use of aspirin (Z79.82) Active confirmed Problem Diverticulosis of colon (118508200) Diverticulosis of colon (K57.30) Active confirmed Plan Of Treatment Future Test Test Name Order Date COLONOSCOPY 09/04/2021 Insurance Providers Payer Name Payer Address Payer Phone Subscriber Number Group Number Insured Name Patient Relationship to Insured Coverage Start Date Coverage End Date [facility] [address] [address] [place] [phone] [id number] PADMINI RAJPUT Self - patient is the insured Medical (General) History Medical History History ICD Code IDDM Hypertension Elevated Cholesterol B12 deficiency Chronic kidney disease Colonoscopy in 2008 with a small hyperpl astic polyp Denies AL,CVA,Lung disease,renal disease Surgical History Surgery Date(Month/Year) Lens implants and Cataratcs
--- OUTSIDE RECORDS SUMMARY | 2024-06-01 09:42 | XMS_ITS | Encounter Summary ---
Author Organization [facility], Address [address] [place] [address] Phone Care Team Providers Care Edgerman Name Role Phone Deborah Rosario DO Primary Care Provider Unava ilable Encounter Details Date Type Department Care Team (Late st Contact Info) Description 01/06/2022 Documentation Only [facility], [address] [place] [phone] Nery Ibanez PA Social History Tobacco Use [...] on filedocumented in this encounter Care Teams Edgerman Relationship Specialty Start Date End Date Deborah Rosario DO PCP - General 01/03/19 documented as of this encounter
--- OUTSIDE RECORDS SUMMARY | 2024-06-01 09:43 | XMS_ITS | Encounter Summary ---
Author Organization [employer] Address [address] [facility] [address] [place] [address] Care Team Providers Care Assembler Installer General Name Role Phone Martha Tapia MD Primary Care Provider [phone] Reason for Visit * Reason Onset Date Comments med refill 05/31/2024 Encounter Details Date Type Department Care Team ([facility] st Contact Info) Description 05/31/[address] [facility] [address] [place], [place] [phone] Martha Tapia MD [address] [place], [place] [phone] Type 2 diabetes mellitus with other specified complication, unspecified whether mcc insulin use ([facility]) Social History Tobacco Use Types Packs/Day Years [...] as of this encounter Miscellaneous Notes * Addendum Note - María Phillip RN - 05/31/2024 11:17 AM EDTAddended by: MARÍA PHILLIP on: 05/31/2024 11:17 AM Modules accepted: Orders * Telephone Encounter - María Phillip RN - 05/31/2024 11:17 AM EDT Rx pended * Telephone Encounter - Tala Crenshaw - 05/31/2024 11:08 AM EDT PT walked in stating that he is in need of the following refill One touch ultra teste strip PT is stating that he has none left at all and is due to take his sugars today. documented in this encounter Plan of Treatment Not on file documented as of this encounter Visit Diagnoses Diagnosis Type 2 diabetes mellitus with other specified complication, unspecified whether mcc insulin use ([facility]) documented in this encounter Care Teams Assembler Installer General Relationship Specialty Start Date End Date Martha Tapia MD [address] [place] [address] PCP - General Family Medicine 02/08/20 documented as of this encounter
--- OUTSIDE RECORDS SUMMARY | 2024-06-01 09:43 | XMS_ITS | Encounter Summary ---
Author Organization [employer] Address [address] [facility] 7t [place] [address] Care Team Providers Care Roller Presser Operator Name Role Phone Martha Tapia MD Primary Care Provider [phone] Encounter Details Date Type Department Care Team (Latest Contact Info) Description 03/03/2024 Orders Only [facility] [address] [place], [place] [phone] Martha Tapia MD [address] [place], [place] [phone] Type 2 diabetes mellitus without complication, with long-term current use of insulin ([facility]); Pure hypercholesterolemia Social History Tobacco Use [...] complication, with long-term current use of insulin ([facility]) Pure hypercholesterolemia documented in this encounter Care Teams Roller Presser Operator Relationship Specialty Start Date End Date Martha Tapia MD [address] [place] [address] PCP - General Family Medicine 02/08/20 documented as of this encounter
--- OUTSIDE RECORDS SUMMARY | 2024-06-01 09:43 | XMS_ITS | Encounter Summary ---
Author Organization [facility], Address [address] [place] [address] Phone Care Team Providers Care Mold Filler Name Role Phone Deborah Rosario DO Primary Care Provider Unava ilable Encounter Details Date Type Department Care Team (Late st Contact Info) Description 09/22/2021 Office Communication [facility], [address] [place] [address] Christian Colindres MD [address] [place] [address] Social History Tobacco Use Types [...] on filedocumented in this encounter Care Teams Mold Filler Relationship Specialty Start Date End Date Deborah Rosario DO PCP - General 01/03/19 documented as of this encounter
--- OUTSIDE RECORDS SUMMARY | 2024-06-01 09:43 | XMS_ITS | Clinical Summary ---
Author Organization [employer] Address [address] [place] [address] 7t [place] [address] Care Team Providers Care Hospital Librarian Name Role Phone Martha Tapia MD Primary Care Provider [phone] Allergies No known active allergies Medications aspirin (Aspirin Adult Low Dose) 81 MG EC tablet daily. 2016 Active hydrocortisone 1 % lotion Apply topically every 12 (twelve) hours. 2021 Active Lancets (OneTouch Delica Plus [id number]) misc TEST BLOOD SUGAR FOUR TIMES DAILY 2021 Active Pentips Generic Pen [place] 32G X 4 MM miscIndications:Type 2 diabetes mellitus with stage 3b chronic kidney disease, with long-term current use of insulin ([facility]) USE WITH INSULIN DAILY 100 each 3 2024 Active ferrous sulfate 325 (65 Fe) MG tabletIndications:Norm ocytic anemia Take 1 tablet (325 mg) by mouth with breakfast. 90 tablet 3 2024 Active insulin glargine (Lantus SoloStar) 100 UNIT/ML penIndications:Type 2 diabetes mellitus without complication, with long-term current use of insulin ([facility]) INJECT 50 UNITS SUBCUTANEOUSLY AT BEDTIME 15 mL 11 2024 Active metFORMIN (Glucophage) 1000 MG tabletIndications:Type 2 diabetes mellitus with stage 3b chronic kidney disease, with long-term current use of insulin ([facility]) TAKE 1 TABLET BY MOUTH TWICE DAILY IN THE MORNING AND IN THE EVENING WITH MEALS 180 tablet 3 2024 Active polyethylene glycol, PEG, 3350 (Glycolax) 17 GM/SCOOP powder Take 17 g by mouth Once per day. 510 g 1 2024 Active hydroCHLOROthiazide (HYDRODiuril) 25 MG tabletIndications:Esse ntial hypertension Take 1 tablet (25 mg) by mouth Once per day. 90 tablet 3 2024 Active empagliflozin (Jardiance) 25 MGIndications:Type 2 diabetes mellitus with stage 3b chronic kidney disease, with long-term current use of insulin ([facility]) Take 1 tablet (25 mg) by mouth in the morning. 90 tablet 3 2024 Active lisinopril 40 MG tabletIndications:Esse ntial hypertension Take 1 tablet (40 mg) by mouth Once per day. 90 tablet 3 2024 Active amLODIPine (Norvasc) 5 MG tabletIndications:Esse ntial hypertension Take 1 tablet (5 mg) by mouth Once per day. 90 tablet 3 2024 Active atorvastatin (Lipitor) 80 MG tabletIndications:Pure hypercholesterolemia Take 1 tablet (80 mg) by mouth Once per day. 90 tablet 3 04/07 Active glucose blood (OneTouch Ultra) test stripIndications:Type 2 diabetes mellitus with other specified complication, unspecified whether exterminator insulin use ([facility]) USE 1 Each by DIRECTED route 4 times every day 100 each 11 2024 Active glucose blood (OneTouch Ultra) test stripIndications:Type 2 diabetes mellitus with other specified complication, unspecified whether retirement insulin use ([facility]) USE 1 Each by DIRECTED route 4 times every day 100 each 11 05/31 Discontinued( Reorder (will not trigger notification to Pharmacy)) Active Problems Problem Noted Date Diagnosed Date Weak urinary stream 04/07/2024 Encounter for current exterminator use of antiplate let drug 03/03/2024 Screening [...] Encounters Date Type Department Care Team Description 05/31/2024 Refill [facility] [address] [place] [address] [phone] Martha Tapia MD Type 2 diabetes mellitus with other specified complication, unspecified whether exterminator insulin use ([facility]) 04/26/2024 Telephone [facility] [address] [place] [address] [phone] Martha Tapia MD lab results request 04/07/2024 Telephone [facility] [address] [place] [address] Iveth Rios, RN Results 04/05/2024 4:00 PM EST Office Visit [facility] [address] [place] [phone] Martha Tapia MD Essential hypertension (Primary Dx); Type 2 diabetes mellitus without complication, with long-term current use of insulin ([facility]); Type 2 diabetes mellitus with stage 3b chronic kidney disease, with long-term current use of insulin ([facility]); Dietary counseling; Exercise counseling; Overweight; Pure hypercholesterolemia; Weak urinary stream; Normocytic anemia 04/05/2024 Travel 03/23/2024 Patient Outreach [facility] [address] [place], [place] [phone] Martha Tapia MD Pre-visit Planning ((Unable to reach for PVP screening and or LVM)) 03/03/2024 Refill [facility] [address] [place], [place] [phone] Martha Tapia MD Type 2 diabetes mellitus with stage 3b chronic kidney disease, with long-term current use of insulin ([facility]) 03/03/2024 Orders Only [facility] [address] [place] [address] Martha Tapia MD Type 2 diabetes mellitus without complication, with long-term current use of insulin ([facility]); Pure hypercholesterolemia 03/03/2024 Telephone [facility] [address] [place] [address] Cony Leo RN Out of Medications 03/03/2024 Telephone [facility] [address] [place], [place] [phone] Martha Tapia MD Triage from Last 3 [...] 01/19/2012, 10/19/2003 Depression Screening 04/27/2023 04/27/2022, 04/27/19 SDOH Screening 04/27/2023 04/27/2022 COVID-19 Vaccine ( [...] Procedure Name Priority Date/Time Associated Diagnosis Comments BASIC METABOLIC PANEL Routine 05/12/2024 12:15 PM EDT Essential hypertension CBC WITH AUTO DIFFERENTIAL Routine 04/05/2024 4:49 [...] with long-term current use of insulin (CMS/HCC) POCT GLYCATED HEMOGLOBIN, TOTAL Routine 04/05/2024 4:08 PM EST Type 2 diabetes mellitus without complication, with long-term current use of insulin (CMS/HCC) POCT GLUCOSE Routine 04/05/2024 4:07 PM EST Type 2 diabetes mellitus without complication, with long-term current use of insulin (CMS/HCC) from Last 3 Months Results * (ABNORMAL) Basic Metabolic Panel (05/12/2024 12:15 PM EDT) Sodium 140 135 - 145 mmol/L [facility] Potassium 5.0 3.3 - 5.1 mmol/L [facility] Chloride 108 96 - 108 mmol/L [facility] Carbon Dioxide 25 22 - 29 mmol/L [facility] Anion Gap 12 12 - 20 [facility] Urea Nitrogen (BUN) 35(H) 9 - 16 mg/dL [facility] Creatinine, Serum 1.61(H) 0.5 - 1.4 mg/dL [facility] Estimated Glomerular Filt Rate 42 [facility] Comment:Chronic Kidney Disea se: Estimated GFR < 60 mL/min/[id number] Kidney Disease: Estimated GFR < 15 mL/min/1.73m2 Glucose 136(H) 60 - 115 mg/dL [facility] Calcium 10.3(H) 8.4 - 10.2 mg/dL [facility] Blood Venous blood specimen / Unknown 05/12/2024 12:15 PM EDT 05/12/2024 1:32 PM EDT us Martha Tapia MD LAB BLOOD ORDERABLES Final Res ult [facility] [address] [place] [phone] * (ABNORMAL) CBC auto differential (04/05/2024 4:49 PM EST) White Blood Count 7.9 4.8 - 10.8 X10*3/uL [facility] Red Blood Count 4.01(L) 4.60 - 5.80 X10*6/uL [facility] Hemoglobin 12.3(L) 14.0 - 18.0 g/dl [facility] Hematocrit 37.2(L) 42.0 - 52.0 % [facility] Mean Corpuscular Volume 92.8 80.0 - 98.0 fL [facility] Mean Corpuscular Hemoglobin 30.7 27.0 - 33.0 pg [facility] Mean Corpuscular HGB Conc 33.1 31.0 - 36.0 g/dl [facility] Red Cell Distribution Width 12.4 11.0 - 16.0 % [facility] Platelet Count 283 160 - 400 X10*3/uL [facility] Mean Platelet Volume 10.8 9.4 - 12.4 fL [facility] Neutrophils Percent Auto 59.3 45 - 73 % [facility] Imm Gran Pct Auto 0.3 0.0 - 0.4 % [facility] Lymphocytes Percent Auto 28.6 20 - 40 % [facility] Monocytes Percent Auto 7.5 2 - 11 % [facility] Eosinophils Percent Auto 3.8 0 - 4 % [facility] Basophils Percent Auto 0.5 0 - 2 % [facility] NRBC Pct Auto 0.0 0.0 - 0.2 /100WBC [facility] Neutrophils Absolute Auto 4.7 2.0 - 8.3 x10*3/uL [facility] Imm Gran Abs Auto 0.02 0.00 - 0.03 X10*3/uL [facility] Lymphocytes Absolute Auto 2.3 1.2 - 4.9 X10*3/uL [facility] Monocytes Absolute Auto 0.6 0.1 - 1.2 X10*3/uL [facility] Eosinophils Absolute Auto 0.3 0.0 - 0.4 X10*3/uL [facility] Basophils Absolute Auto 0.0 0.0 - 0.2 X10*3/uL [facility] NRBC Abs Auto 0.000 0.0 - 0.012 X10*3/uL [facility] Blood Venous blood specimen / Unknown 04/05/2024 4:49 PM EST 04/05/2024 6:27 PM EST Martha Tapia MD LAB BLOOD ORDERABLES Final Res ult Performing Organization Address [facility]/ZIP Co de Phone Number [facility] [address] [place] [phone] * Hepatitis C Antibody with Reflex to HCV, RNA, Quantitative, Real-Time PCR (04/05/2024 4:49 PM EST) Hepatitis C Antibody Nonreactive Nonreactive [facility] Comment:Antibodies to HCV no t detected; does not exclude early acuteHCV infection. Blood Venous blood specimen / Unknown 04/05/2024 4:49 PM EST 04/05/2024 6:27 PM EST Martha Tapia MD LAB BLOOD ORDERABLES Final Res ult Performing Organization Address City/[facility]/ZIP Co de Phone Number [facility] [address] [place] [phone] * (ABNORMAL) Lipid Panel, Standard (04/05/2024 4:49 PM EST) Triglycerides 255(H) <150 mg/dL [facility] Comment:Slight Lipemia.Karime able Triglyceride: less than 150 mg/dLBorderline High Triglyceride 150-199 mg/dLHigh Triglyceride: 200-499 mg/dLVery High Triglyceride: greater than or equal to 5OO mg/dL Cholesterol 205(H) <200 mg/dL [facility] Comment:Desirable Cholestero l: less than 200 mg/dLBorderline High Cholesterol: 200-239 mg/dLHigh Cholesterol: greater than 239 mg/dL LDL Cholesterol Calculated 111(H) <100 mg/dL [facility] Comment:Desirable LDL: less than 100 mg/dLNear Optimal/Above Optimal LDL: 110- 129 mg/dLBorderline High LDL: 130-159 mg/dLHigh LDL: 160-189 mg/dLVery High LDL: greater than or equal to 190 mg/dL HDL Cholesterol 43 >40 mg/dL [facility] Comment:Desirable HDL: great er than 40 mg/dL Note: This HDL assay may give artificially low results in patients with liver disease. Blood Venous blood specimen / Unknown 04/05/2024 4:49 PM EST 04/05/2024 6:27 PM EST us Martha Tapia MD LAB BLOOD ORDERABLES Final Res ult [facility] [address] [place] [address] [phone] * (ABNORMAL) Comprehensive Metabolic Panel (04/05/2024 4:49 PM EST) Sodium 139 135 - 145 mmol/L [facility] Potassium 4.0 3.3 - 5.1 mmol/L [facility] Chloride 111(H) 96 - 108 mmol/L [facility] Carbon Dioxide 23 22 - 29 mmol/L [facility] Anion Gap 9(L) 12 - 20 [facility] Urea Nitrogen (BUN) 24(H) 9 - 16 mg/dL [facility] Creatinine, Serum 1.40 0.5 - 1.4 mg/dL [facility] Estimated Glomerular Filt Rate 49 [facility] Comment:Chronic Kidney Disea se: Estimated GFR < 60 mL/min/[id number] Kidney Disease: Estimated GFR < 15 mL/min/1.73m2 Glucose 107 60 - 115 mg/dL [facility] Calcium 9.3 8.4 - 10.2 mg/dL [facility] Bilirubin, Total 0.1 0.0 - 1.0 mg/dL [facility] Aspartate Amino Transferase 27 5 - 37 U/L [facility] Alanine Aminotransferase 24 0 - 40 U/L [facility] Total Protein 8.2(H) 6.5 - 8.0 g/dL [facility] Albumin Level 4.1 3.5 - 5.0 g/dL [facility] Alkaline Phosphatase 52 39 - 117 U/L [facility] Blood Venous blood specimen / Unknown 04/05/2024 4:49 PM EST 04/05/2024 6:27 PM EST Martha Tapia MD LAB BLOOD ORDERABLES Final Res ult [facility] [address] [place] [phone] * (ABNORMAL) POCT HGB A1C (04/05/2024 [...] Last 3 Months Insurance MEDICARE Care Teams Hospital Librarian Relationship Specialty Start Date End Date Martha Tapia MD [address] [place] [address] PCP - General Family Medicine 02/08/20
--- OUTSIDE RECORDS SUMMARY | 2024-06-01 09:43 | XMS_ITS | Clinical Summary ---
Author Organization [facility], Address [address] [place] [address] [place] [address] Phone Care Team Providers Care Assistant Name Role Phone Deborah Rosario DO Primary [...] PM EDT) Hemoglobin A1C 10.7(H) (4.0-5.6) % [facility] Comment: MONITORING: In known diabetic patients, hemoglobin A1c targets should be discussed with health care provider. DIAGNOSTIC USE: ??The [place] Diabetes Association (ADA) and the World Health [...] Supplement 1 Testing performed or reported by [facility], a Service of [facility], [address] [place] [address] Suman Wheatley MD, Ships Or Barges Loader [facility]# [id number] Blood (Blood, Venous) 09/15/2021 1:22 PM EDT 09/15/2021 1:25 PM EDT us Christian Colindres MD LAB BLOOD ORDERABLES Final Resul t [facility] from Last 3 Months or Most Recently Relevant to Health Maintenance Insurance [facility] [employer] DUAL [place] Care Teams Assistant Relationship Specialty Start Date End Date Deborah Rosario DO PCP - General 01/03/19
--- OUTSIDE RECORDS SUMMARY | 2024-06-01 09:43 | XMS_ITS | Encounter Summary ---
Author Organization [employer] Address [address] [facility] 7t [place] [address] Care Team Providers Care Junior Programmer Name Role Phone Martha Tapia MD Primary Care Provider [phone] Encounter Details Date Type Department Care Team (Latest Contact Info) Description 04/29/2022 Orders Only [facility] [address] [place], [place] [phone] Martha Tapia MD [address] [place], [place] [phone] Pure hypercholesterolemia (Primary Dx) Social History Tobacco [...] Sedimentation Rate 36(H) 0 - 15 MM/HR [facility] Comment:Patients with polycy themia and many hemoglobin abnormalitiesmay have depressed sed rates whereas patients with anemiamay have elevated sed rates. 01/04/2023 11:5 8 AM EST 01/04/2023 12:00 PM EST us Generic External Data Provider LAB BLOOD ORDERAB LES Final Result Performing Organization Address [facility]/ZIP Co de Phone Number [facility] [address] [place] [phone] * C-reactive Protein (01/04/2023 11:58 AM EST) C Reactive Protein 0.20 < or = 0.50 mg/dL [facility] 01/04/2023 11:5 8 AM EST 01/04/2023 12:00 PM EST us Generic External Data Provider LAB BLOOD ORDERAB LES Final Result Performing Organization Address City/[facility] Co de Phone Number [facility] [address] [place] [phone] * Magnesium (01/04/2023 11:58 AM EST) Magnesium 1.8 1.6 - 2.6 mg/dL [facility] 01/04/2023 11:5 8 AM EST 01/04/2023 12:00 PM EST us Generic External Data Provider LAB BLOOD ORDERAB LES Final Result [facility] [address] [place] [phone] * (ABNORMAL) Comprehensive Metabolic Panel (01/04/2023 11:58 AM EST) Sodium 139 135 - 145 mmol/L [facility] Potassium 4.2 3.3 - 5.1 mmol/L [facility] Chloride 108 96 - 108 mmol/L [facility] Carbon Dioxide 25 22 - 29 mmol/L [facility] Anion Gap 10(L) 12 - 20 [facility] Urea Nitrogen (BUN) 24(H) 9 - 16 mg/dL [facility] Creatinine, Serum 1.60(H) 0.5 - 1.4 mg/dL [facility] Creatinine Clr Calc Pharmacy 41.6 [facility] Comment:eGFR (calculated fro m the MDRD study equation) and eCrCl(calculated from the Cockcroft-Gault equation) are based ondifferent parameters and may not yield comparable results.If eCrCl result is absurd, please check patient'sheight/weight. Estimated Glomerular Filt Rate 42 [facility] Comment:NOTE: For -Am erican individuals, multiply the result by 1.210.Chronic Kidney Disease: Estimated GFR < 60 mL/min/[id number] Kidney Disease: Estimated GFR < 15 mL/min/1.73m2 Glucose 127(H) 60 - 115 mg/dL [facility] Calcium 9.5 8.4 - 10.2 mg/dL [facility] Bilirubin, Total 0.3 0.0 - 1.0 mg/dL [facility] Aspartate Amino Transferase 15 5 - 37 U/L [facility] Alanine Aminotransferase 12 0 - 40 U/L [facility] Total Protein 7.7 6.5 - 8.0 g/dL [facility] Albumin Level 4.0 3.5 - 5.0 g/dL [facility] Alkaline Phosphatase 62 39 - 117 U/L [facility] 01/04/2023 11:5 8 AM EST 01/04/2023 12:00 PM EST us Generic External Data Provider LAB BLOOD ORDERAB LES Final Result [facility] [address] [place] [phone] * (ABNORMAL) CBC auto differential (01/04/2023 11:58 AM EST) White Blood Count 8.0 4.8 - 10.8 X10*3/uL [facility] Red Blood Count 3.77(L) 4.60 - 5.80 X10*6/uL [facility] Hemoglobin 11.6(L) 14.0 - 18.0 g/dl [facility] Hematocrit 35.3(L) 42.0 - 52.0 % [facility] Mean Corpuscular Volume 93.6 80.0 - 98.0 fL [facility] Mean Corpuscular Hemoglobin 30.8 27.0 - 33.0 pg [facility] Mean Corpuscular HGB Conc 32.9 31.0 - 36.0 g/dl [facility] Red Cell Distribution Width 12.0 11.0 - 16.0 % [facility] Platelet Count 215 160 - 400 X10*3/uL [facility] Mean Platelet Volume 10.1 9.4 - 12.4 fL [facility] Neutrophils Percent Auto 66.9 45 - 73 % [facility] Imm Gran Pct Auto 0.2 0.0 - 0.4 % [facility] Lymphocytes Percent Auto 22.3 20 - 40 % [facility] Monocytes Percent Auto 8.1 2 - 11 % [facility] Eosinophils Percent Auto 2.0 0 - 4 % [facility] Basophils Percent Auto 0.5 0 - 2 % [facility] NRBC Pct Auto 0.0 0.0 - 0.2 /100WBC [facility] Neutrophils Absolute Auto 5.4 2.0 - 8.3 x10*3/uL [facility] Imm Gran Abs Auto 0.02 0.00 - 0.03 X10*3/uL [facility] Lymphocytes Absolute Auto 1.8 1.2 - 4.9 X10*3/uL [facility] Monocytes Absolute Auto 0.7 0.1 - 1.2 X10*3/uL [facility] Eosinophils Absolute Auto 0.2 0.0 - 0.4 X10*3/uL [facility] Basophils Absolute Auto 0.0 0.0 - 0.2 X10*3/uL [facility] NRBC Abs Auto 0.000 0.0 - 0.012 X10*3/uL [facility] 01/04/2023 11:5 8 AM EST 01/04/2023 12:00 PM EST us Generic External Data Provider LAB BLOOD ORDERAB LES Final Result Performing Organization Address City/State/[facility] Co de Phone Number [facility] [address] [place] [phone] documented in this encounter Visit Diagnoses Diagnosis Pure hypercholesterolemia- Primary documented in this encounter Care Teams Junior Programmer Relationship Specialty Start Date End Date Martha Tapia MD [address] [place] [phone] PCP - General Family Medicine 02/08/20 documented as of this encounter
--- NOTE | 2024-06-01 09:59 | MHC.OFFVIS ---
Intake Visit Reasons: Lower urinary tract symptoms Intake Note: Patient is present for LOWER URINARY TRACT SYMPTOMS Urology Medication:NONE Antibiotic Allergy:NONE Blood Thinner:ASPIRIN Customer Solutions Supervisor Required: No Allergies No Known Allergies [No Known Allergies*] Allergy (Verified 06/01/24 09:59) HPI Comments Details: Yossi is a very pleasant Cypriot-speaking male. He is a patient of Dr. Tapia. He seen for the following urologic conditions - balanitis Last seen in office over 2 years ago for balanitis At that point HbA1c was close to 10 Balanitis improved with topical therapy 3+ sugar in urine today on Jardiance Recommend discussion with PCP as having significant side effects from Jardiance would recommend Actos Recurrence of phimosis Given age 78 recommend office dorsal slit to allow retraction of foreskin Advised to hold aspirin and anti-inflammatories for 7 days prior to the procedure Balanitis Background diabetic Proximally year ago HbA1c elevated to close to 10 Noted to have balanitis with foreskin cracking This is improved with topical therapy and diabetic control Currently minimal issues with urination Can follow-up p.r.n. if has biopsy diabetic control PFSH Medical History Nocturia Chronic renal insufficiency Elevated cholesterol Hypertension Diabetes mellitus type 1 Surgical History Hx of cataract extraction H/O colonoscopy Social History Patient Tobacco Use Status: Never used Tobacco Review of Systems Const Denies chills and Denies fever(s) Card Reports no additional complaints and Denies syncope Resp Denies cough GI Denies abdominal pain and Denies heartburn Reports as per HPI and Denies change in libido Neuro Denies syncope Psych Denies change in libido Endo Denies change in libido Physical Exam Const General: cooperative, healthy appearing, comfortable and no acute distress Orientation/consciousness: patient oriented x3 HEENT Face and sinus: Yes normal facial exam Mouth: moist mucous membranes Neck Neck: Yes normal visual inspection, Yes full ROM and Yes trachea midline Chest Chest palpation & inspection: normal inspection of the chest Resp Effort & Inspection: normal respiratory effort, able to speak in complete sentences and no respiratory distress GI Inspection: Yes normal to inspection Back/Spine/Pelvis Cervical Spine: normal cervical lordosis Thoracic/Lumbar Spine: thoracic and lumbar spine normal to inspection Skin General skin exam: no rashes or lesions noted Neuro General: patient oriented x3, gait normal, tone normal and moves all extremities Extrem General: Yes normal to inspection and Yes capillary refill normal Results AMB Urinalysis, Automated UA Leukoctes 0 Zhanna/uL Last Edit by JULISSA Gonzalez on 06/01/24 10:13 UA Nitrite Negative Last Edit by Gene Tolentino [facility] on 06/01/24 10:13 UA Urobilinogen 0.2 mg/dL Last Edit by Gene Tolentino [facility] on 06/01/24 10:13 UA Protein 15 mg/dL Last Edit by Gene Tolentino [facility] on 06/01/24 10:13 UA pH 6.0 Last Edit by Gene Tolentino [facility] on 06/01/24 10:13 UA Blood 10 Jh/uL Last Edit by Gene Tolentino [facility] on 06/01/24 10:13 UA Specific [place] 1.015 Last Edit by Gene Tolentino [facility] on 06/01/24 10:13 UA Ketone Negative Last Edit by Gene Tolentino [facility] on 06/01/24 10:13 UA Bilirubin 0 mg/dL Last Edit by Gene Tolentino [facility] on 06/01/24 10:13 UA Glucose 1000 mg/dL Last Edit by Gene Tolentino [facility] on 06/01/24 10:13 Results Reviewed Results Reviewed: Laboratory Last Values Urine pH (Auto) 6.0 06/01/24 10:13 Specific [place] (Auto) 1.015 06/01/24 10:13 Urine Protein (Auto) 15 mg/dL 06/01/24 10:13 Glucose (UA)(Auto) 1000 mg/dL 06/01/24 10:13 Urine Ketones (Auto) Negative 06/01/24 10:13 Urine Blood (Auto) 10 Jh/uL 06/01/24 10:13 Urine Nitrite (Auto) Negative 06/01/24 10:13 Urine Bilirubin (Auto) 0 mg/dL 06/01/24 10:13 Urine Urobilinogen (Auto) 0.2 mg/dL 06/01/24 10:13 Leukocyte Esterase (Auto) 0 Zhanna/uL 06/01/24 10:13 Assessment & Plan Assessment & Plan (1) 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 These include but are not limited to infection, bleeding, damage to local organs and tissues, need for further interventions. Anesthetic risks regarding cardiac arrhythmia, blood clots, and potential mortality were discussed. The patient understands the typical recovery time and the outpatient nature of the procedure. After consideration of these risks the patient gives full informed consent and they wish to move ahead with the procedure. Office dorsal slit Orders: Orders AMB Urinalysis Automated Today Z13.9 - Encounter for screening, unspecified Patient Instructions: This note is constructed using voice recognition software. While every effort has been made to ensure accuracy credit portfolio manager errors may have been included. Imaging studies, laboratory and physical exam results were discussed and reviewed in detail. No major barriers to patient understanding were identified. An opportunity to ask questions regarding the treatment plan was provided. All questions were answered. The patient expressed understanding and agreement with the above treatment plan. The patient is aware they should contact our office by phone for worsening of their current condition or the appearance of new urologic symptoms. Compliance is encouraged with any medications and followup testing that is ordered. It is a privilege to participate in the urologic care of your patient. If you have any questions or concerns regarding treatment for the above conditions, or other urologic issues, please do not hesitate to contact me. The office telephone contact is [phone]. Sincerely, Dr Clarence Epperson MD, [facility] - Urology Compassionate Specialist Care for the Genitourinary System Coding Level of Care Code Est Pt Level 4 (48970) Diagnoses Balanitis circinata N48.1
== END 2024-06-01 11:15 | disposition home or self-care (01) ==
LOC: HO.HUSH 09:18
PROVIDERS: PCP General Practice; Visit Provider Urology
DX: N48.1 Balanitis (principal); Z13.9 Encounter for screening, unspecified
CPT/HCPCS: 99214

== ENCOUNTER → 2024-06-01 09:17 | Outpatient (BNVA) | payer MEDICARE, MEDICAID, SELFPAY | PROVIDERS: PCP General Practice; Visit Provider Urology | DX: N48.1 Balanitis (principal) | CPT/HCPCS: 81003; 99212 ==

== ENCOUNTER 2024-07-05 12:57 | Outpatient (AMB) | payer MEDICARE, MEDICAID, SELFPAY ==
--- NOTE | 2024-07-05 14:01 | A.OFFVIS_ITS ---
Intake Visit Reasons: dorsal slit Intake Note: Patient is present for DORSAL SLIT Urology Medication:NONE Antibiotic Allergy:NONE Blood Thinner:ASPIRIN Cardiology Associate Required: No Allergies No Known Allergies (No Known Allergies*) Allergy (Verified 08/08/24 09:45) HPI Comments Details: Yossi is a very pleasant Danish-speaking male. He is a patient of Dr. Tapia. He seen for the following urologic conditions - balanitis Here for office dorsal slit in setting of recurrent phimosis with diabetes Office procedure note Penis was draped Betadine was used on the foreskin Local anesthetic infiltrated ring block Clamp placed on dorsal skin Area cut with Metzenbaum scissors 4-0 chromic placed at apex of incision Three interrupted sutures placed on each side for hemostasis Foreskin able to easily be retracted CPT 59335 Balanitis Background diabetic Proximally year ago HbA1c elevated to close to 10 Noted to have balanitis with foreskin cracking This is improved with topical therapy and diabetic control Currently minimal issues with urination Can follow-up p.r.n. if has biopsy diabetic control [facility] Medical History (Updated 08/08/24 @ 09:52 by Elham Brown [facility]) Nocturia Chronic renal insufficiency Elevated cholesterol Hypertension Diabetes mellitus type 1 Surgical History Hx of cataract extraction H/O colonoscopy Social History Patient Tobacco Use Status: Never used Tobacco Review of Systems Const Denies chills and Denies fever(s) Card Reports no additional complaints and Denies syncope Resp Denies cough GI Denies abdominal pain and Denies heartburn Reports as per HPI and Denies change in libido Neuro Denies syncope Psych Denies change in libido Endo Denies change in libido Physical Exam Const General: cooperative, healthy appearing, comfortable and no acute distress Orientation/consciousness: patient oriented x3 HEENT Face and sinus: Yes normal facial exam Mouth: moist mucous membranes Neck Neck: Yes normal visual inspection, Yes full ROM and Yes trachea midline Chest Chest palpation & inspection: normal inspection of the chest Resp Effort & Inspection: normal respiratory effort, able to speak in complete sentences and no respiratory distress GI Inspection: Yes normal to inspection Back/Spine/Pelvis Cervical Spine: normal cervical lordosis Thoracic/Lumbar Spine: thoracic and lumbar spine normal to inspection Skin General skin exam: no rashes or lesions noted Neuro General: patient oriented x3, gait normal, tone normal and moves all extremities Extrem General: Yes normal to inspection and Yes capillary refill normal Assessment & Plan Assessment & Plan (1) 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 While every effort has been made to ensure accuracy software quality assurance analyst errors may have been included. Imaging studies, laboratory and physical exam results were discussed and reviewed in detail. No major barriers to patient understanding were identified. An opportunity to ask questions regarding the treatment plan was provided. All questions were answered. The patient expressed understanding and agreement with the above treatment plan. The patient is aware they should contact our office by phone for worsening of their current condition or the appearance of new urologic symptoms. Compliance is encouraged with any medications and followup testing that is ordered. It is a privilege to participate in the urologic care of your patient. If you have any questions or concerns regarding treatment for the above conditions, or other urologic issues, please do not hesitate to contact me. The office telephone contact is [phone]. Sincerely, Dr Clarence Epperson MD, [facility] - Urology Compassionate Specialist Care for the Genitourinary System Coding Level of Care Code Procedure Only Diagnoses Balanitis circinata N48.1 Nocturia R35.1
--- OUTSIDE RECORDS SUMMARY | 2024-07-05 14:05 | XMS_ITS | Encounter Summary ---
Author Organization [facility], Address [address] [place] [address] Phone Care Team Providers Care Skates Operator Name Role Phone Deborah Rosario DO Primary Care Provider Unava ilable Encounter Details Date Type Department Care Team (Late st Contact Info) Description 01/06/2022 Documentation Only [facility], [address] [place] [phone] Nery Ibanez PA Social History Tobacco Use [...] on filedocumented in this encounter Care Teams Skates Operator Relationship Specialty Start Date End Date Deborah Rosario DO PCP - General 01/03/19 documented as of this encounter
--- OUTSIDE RECORDS SUMMARY | 2024-07-05 14:06 | XMS_ITS | Patient Health Record ---
Author Organization [facility] Address [address] [place] [address] Care Team Providers Care Commercial Counsel Name Role Phone Martha Tapia M.D. Primary Care Provider Lino Gomez Unavailable [phone] Allergies No Known Allergies Reason For Referral [...] Problem Screening for malignant neoplasm of colon (200972992) Encounter for screening for malignant neoplasm of colon (Z12.11) Active confirmed Problem Pre-procedure evaluation check (288184405) Encounter for other preprocedural examination (Z01.818) Active confirmed Problem Long-term current use of antiplatelet drug (772229255730295) [facility] (current) use of aspirin (Z79.82) Active confirmed Problem Diverticulosis of colon (013640226) Diverticulosis of colon (K57.30) Active confirmed Plan Of Treatment Future Test Test Name Order Date COLONOSCOPY 09/04/2021 Insurance Providers Payer Name Payer Address Payer Phone Subscriber Number Group Number Insured Name Patient Relationship to Insured Coverage Start Date Coverage End Date [facility] [address] [address] [place] [phone] [id number] PADMINI RAJPUT Self - patient is the insured Medical (General) History Medical History History ICD Code IDDM Hypertension Elevated Cholesterol B12 deficiency Chronic kidney disease Colonoscopy in 2008 with a small hyperpl astic polyp Denies [place],CVA,Lung disease,renal disease Surgical History Surgery Date(Month/Year) Lens implants and Cataratcs
--- OUTSIDE RECORDS SUMMARY | 2024-07-05 14:06 | XMS_ITS | Clinical Summary ---
Author Organization [employer] Address [address] [place] [address] Care Team Providers Care 3D Animator Name Role Phone Martha Tapia MD Primary Care Provider [phone] Allergies No known active allergies Medications aspirin (Aspirin Adult Low Dose) 81 MG EC tablet daily. 017 Active hydrocortisone 1 % lotion Apply topically every 12 (twelve) hours. 022 Active Lancets (OneTouch Delica Plus [id number]) misc TEST BLOOD SUGAR FOUR TIMES DAILY 022 Active Pentips Generic Pen [place] 32G X 4 MM miscIndications:Type 2 diabetes mellitus with stage 3b chronic kidney disease, with long-term current use of insulin ([facility]) USE WITH INSULIN DAILY 100 each 3 025 Active ferrous sulfate 325 (65 Fe) MG tabletIndications:Normo cytic anemia Take 1 tablet (325 mg) by mouth with breakfast. 90 tablet 3 025 Active insulin glargine (Lantus SoloStar) 100 UNIT/ML penIndications:Type 2 diabetes mellitus without complication, with long-term current use of insulin ([facility]) INJECT 50 UNITS SUBCUTANEOUSLY AT BEDTIME 15 mL 11 025 Active metFORMIN (Glucophage) 1000 MG tabletIndications:Type 2 diabetes mellitus with stage 3b chronic kidney disease, with long-term current use of insulin ([facility]) TAKE 1 TABLET BY MOUTH TWICE DAILY [...] disease, with long-term current use of insulin ([facility]) Take 1 tablet (25 mg) by mouth [...] day. 90 tablet 3 025 2025 Active glucose blood (3 Four 5 Group Ultra) test stripIndications:Type 2 diabetes mellitus with other specified complication, unspecified whether termite exterminator helper insulin use ([facility]) USE 1 Each by DIRECTED route 4 times every day 100 each 11 025 Active Active Problems Problem Noted Date Diagnosed Date Weak urinary stream 04/07/2024 Encounter for current intermediate use of antiplate let drug 03/03/2024 Screening [...] Encounters Date Type Department Care Team Description 06/08/[address] [address] Karina Borjas RN Results 06/02/[address] [address] Karina Borjas RN Paperwork/Forms 05/31/[address] [address] Martha Tapia MD Type 2 diabetes mellitus with other specified complication, unspecified whether intermediate insulin use ([facility]) 04/26/2024 Telephone [facility] [address] [place] [phone] Martha Tapia MD lab results request 04/07/[address] [address] Iveth Rios RN Results from Last 3 Months Immunizations Name Administration [...] Routine 05/12/2024 12:15 PM EDT Essential hypertension HEPATITIS C AB W/REFL TO HCV RNA, QN, PCR Routine 04/05/2024 4:49 PM EST Type 2 diabetes mellitus without complication, with long-term current use of insulin ([facility]) LIPID PANEL, STANDARD Routine 04/05/2024 4:49 PM EST Type 2 diabetes mellitus without complication, with long-term current use of insulin ([facility]) POCT GLYCATED HEMOGLOBIN, TOTAL Routine 04/05/2024 4:08 PM EST Type 2 diabetes mellitus without complication, with long-term current use of insulin ([facility]) from Last 3 Months or Most Recently Relevant to Health Maintenance Results * (ABNORMAL) Basic Metabolic Panel (05/12/2024 12:15 PM EDT) Sodium 140 135 - 145 mmol/L [facility] Potassium 5.0 3.3 - 5.1 mmol/L [facility] Chloride 108 96 - 108 mmol/L [facility] Carbon Dioxide 25 22 - 29 mmol/L [facility] Anion Gap 12 12 - 20 [facility] Urea Nitrogen (BUN) 35(H) 9 - 16 mg/dL [facility] Creatinine, Serum 1.61(H) 0.5 - 1.4 mg/dL [facility] Estimated Glomerular Filt Rate 42 [facility] Comment:Chronic Kidney Disea se: Estimated GFR < 60 mL/min/1.98n7Vylfay Kidney Disease: Estimated GFR < 15 mL/min/1.73m2 Glucose 136(H) 60 - 115 mg/dL [facility] Calcium 10.3(H) 8.4 - 10.2 mg/dL [facility] Blood Venous blood specimen / Unknown 05/12/2024 12:15 PM EDT 05/12/2024 1:32 PM EDT us Matrha Tapia MD LAB BLOOD ORDERABLES Final Res ult Performing Organization Address [facility] Co de Phone Number [facility] [address] [place] [phone] * Hepatitis C Antibody with Reflex to HCV, RNA, Quantitative, Real-Time PCR (04/05/2024 4:49 PM EST) Hepatitis C Antibody Nonreactive Nonreactive [facility] Comment:Antibodies to HCV no t detected; does not exclude early acuteHCV infection. Blood Venous blood specimen / Unknown 04/05/2024 4:49 PM EST 04/05/2024 6:27 PM EST us Martha Tapia MD LAB BLOOD ORDERABLES Final Res ult Performing Organization Address [facility] de Phone Number [facility] [address] [place] [phone] * (ABNORMAL) Lipid Panel, Standard (04/05/2024 4:49 PM EST) Triglycerides 255(H) <150 mg/dL [facility] Comment:Slight Lipemia.Karime able Triglyceride: less than 150 mg/dLBorderline High Triglyceride 150-199 mg/dLHigh Triglyceride: 200-499 mg/dLVery High Triglyceride: greater than or equal to 5OO mg/dL Cholesterol 205(H) <200 mg/dL [facility] Comment:Desirable Cholestero l: less than 200 mg/dLBorderline High Cholesterol: 200-239 mg/dLHigh Cholesterol: greater than 239 mg/dL LDL Cholesterol Calculated 111(H) <100 mg/dL [facility] Comment:Desirable LDL: less than 100 mg/dLNear Optimal/Above Optimal LDL: 110- 129 mg/dLBorderline High LDL: 130-159 mg/dLHigh LDL: 160-189 mg/dLVery High LDL: greater than or equal to 190 mg/dL HDL Cholesterol 43 >40 mg/dL [facility] Comment:Desirable HDL: great er than 40 mg/dL Note: This HDL assay may give artificially low results in patients with liver disease. Blood Venous blood specimen / Unknown 04/05/2024 4:49 PM EST 04/05/2024 6:27 PM EST Martha Tapia MD LAB BLOOD ORDERABLES Final Res ult [facility] [address] [place] [phone] * (ABNORMAL) POCT HGB A1C (04/05/2024 4:08 PM EST) Hemoglobin A1C 8.7(A) 4.0 - 6.0 % Blood 04/05/2024 4:08 PM EST Martha Tapia MD POINT OF CARE TEST ENTER/EDIT ORDERABLES Final Result from Last 3 Months or Most Recently Relevant to Health Maintenance Insurance [address] [place] [phone] [facility] STANDARD MEDICARE Care Teams 3D Animator Relationship Specialty Start Date End Date Martha Tapia MD [address] [place] [phone] PCP - General Family Medicine 02/08/20
--- OUTSIDE RECORDS SUMMARY | 2024-07-05 14:06 | XMS_ITS | Clinical Summary ---
Author Organization [facility], Address [address] [place] [address] [place] [phone] Phone Care Team Providers Care Negotiator Sales Name Role Phone Deborah Rosario DO Primary [...] Due Date Last Done Comments Pneumococcal Vaccine: 50+ Years (1 of 2 - PCV) 12/09/1964 Diabetes: Ophthalmology Exam 05/11/2019 Diabetes: Pedal Pulse Checked 05/11/2019 Diabetes: Sensory Foot Exam 05/11/2019 Diabetes: Visual Foot Exam 05/11/2019 Diabetes: Hemoglobin A1C 12/16/202109/15/2 022, 12/13/2020, 12/22/2019, Additional history exists Influenza Vaccine (Season Ended) 2024 Hepatitis B Vaccine Aged Out No longe r eligible based on patient's age to complete this topic Procedures Procedure Name Priority Date/Time Associated Diagnosis Comments HEMOGLOBIN A1C Routine 09/15/2021 1:22 PM EDT Stage 3b chronic kidney disease (HCC) from Last 3 Months or Most Recently Relevant to Health Maintenance Results * (ABNORMAL) Hemoglobin A1c (09/15/2021 1:22 PM EDT) Hemoglobin A1C 10.7(H) (4.0-5.6) % [facility] Comment: MONITORING: In known diabetic patients, hemoglobin A1c targets should be discussed with health care provider. DIAGNOSTIC USE: ??The [place] Diabetes Association (ADA) and the World Health [...] Supplement 1 Testing performed or reported by [facility], a Service of [facility], [address] [place] [address] Suman Wheatley MD, Hospital Educator [facility]# [id number] Blood (Blood, Venous) 09/15/2021 1:22 PM EDT 09/15/2021 1:25 PM EDT us Christian Colindres MD LAB BLOOD ORDERABLES Final Resul t [facility] from Last 3 Months or Most Recently Relevant to Health Maintenance Insurance [facility] Community Plan Dual Elig Medicaid [place] Care Teams Negotiator Sales Relationship Specialty Start Date End Date Deborah Rosario DO PCP - General 01/03/19
--- OUTSIDE RECORDS SUMMARY | 2024-07-05 14:06 | XMS_ITS | Encounter Summary ---
Author Organization [employer] Address [address] [facility] 7t [place] [address] Care Team Providers Care Ios Software Engineer Name Role Phone Martha Tapia MD Primary Care Provider [phone] Encounter Details Date Type Department Care Team (Latest Contact Info) Description 04/29/2022 Orders Only [facility] MEDICINE [address] [place], [place] [phone] Martha Tapia MD [address] [place], [place] [phone] Pure hypercholesterolemia (Primary Dx) Social History Tobacco [...] Sedimentation Rate 36(H) 0 - 15 MM/HR [facility] Comment:Patients with polycy themia and many hemoglobin abnormalitiesmay have depressed sed rates whereas patients with anemiamay have elevated sed rates. 01/04/2023 11:5 8 AM EST 01/04/2023 12:00 PM EST us Generic External Data Provider LAB BLOOD ORDERAB LES Final Result Performing Organization Address City/[facility]/ZIP Co de Phone Number [facility] [address] [place] [address] [phone] * C-reactive Protein (01/04/2023 11:58 AM EST) C Reactive Protein 0.20 < or = 0.50 mg/dL [facility] 01/04/2023 11:5 8 AM EST 01/04/2023 12:00 PM EST us Generic External Data Provider LAB BLOOD ORDERAB LES Final Result Performing Organization Address City/[facility]/ZIP Co de Phone Number [facility] [address] [place] [phone] * Magnesium (01/04/2023 11:58 AM EST) Magnesium 1.8 1.6 - 2.6 mg/dL [facility] 01/04/2023 11:5 8 AM EST 01/04/2023 12:00 PM EST us Generic External Data Provider LAB BLOOD ORDERAB LES Final Result [facility] [address] [place] [phone] * (ABNORMAL) Comprehensive Metabolic Panel (01/04/2023 11:58 AM EST) Sodium 139 135 - 145 mmol/L [facility] Potassium 4.2 3.3 - 5.1 mmol/L [facility] Chloride 108 96 - 108 mmol/L [facility] Carbon Dioxide 25 22 - 29 mmol/L [facility] Anion Gap 10(L) 12 - 20 [facility] Urea Nitrogen (BUN) 24(H) 9 - 16 mg/dL [facility] Creatinine, Serum 1.60(H) 0.5 - 1.4 mg/dL [facility] Creatinine Clr Calc Pharmacy 41.6 [facility] Comment:eGFR (calculated fro m the MDRD study equation) and eCrCl(calculated from the Cockcroft-Gault equation) are based ondifferent parameters and may not yield comparable results.If eCrCl result is absurd, please check patient'sheight/weight. Estimated Glomerular Filt Rate 42 [facility] Comment:NOTE: For -Am erican individuals, multiply the result by 1.210.Chronic Kidney Disease: Estimated GFR < 60 mL/min/[id number] Kidney Disease: Estimated GFR < 15 mL/min/1.73m2 Glucose 127(H) 60 - 115 mg/dL [facility] Calcium 9.5 8.4 - 10.2 mg/dL [facility] Bilirubin, Total 0.3 0.0 - 1.0 mg/dL [facility] Aspartate Amino Transferase 15 5 - 37 U/L [facility] Alanine Aminotransferase 12 0 - 40 U/L [facility] Total Protein 7.7 6.5 - 8.0 g/dL [facility] Albumin Level 4.0 3.5 - 5.0 g/dL [facility] Alkaline Phosphatase 62 39 - 117 U/L [facility] 01/04/2023 11:5 8 AM EST 01/04/2023 12:00 PM EST us Generic External Data Provider LAB BLOOD ORDERAB LES Final Result [facility] [address] [place] [phone] * (ABNORMAL) CBC auto differential (01/04/2023 11:58 AM EST) White Blood Count 8.0 4.8 - 10.8 X10*3/uL [facility] Red Blood Count 3.77(L) 4.60 - 5.80 X10*6/uL [facility] Hemoglobin 11.6(L) 14.0 - 18.0 g/dl [facility] Hematocrit 35.3(L) 42.0 - 52.0 % [facility] Mean Corpuscular Volume 93.6 80.0 - 98.0 fL [facility] Mean Corpuscular Hemoglobin 30.8 27.0 - 33.0 pg [facility] Mean Corpuscular HGB Conc 32.9 31.0 - 36.0 g/dl [facility] Red Cell Distribution Width 12.0 11.0 - 16.0 % [facility] Platelet Count 215 160 - 400 X10*3/uL [facility] Mean Platelet Volume 10.1 9.4 - 12.4 fL [facility] Neutrophils Percent Auto 66.9 45 - 73 % [facility] Imm Gran Pct Auto 0.2 0.0 - 0.4 % [facility] Lymphocytes Percent Auto 22.3 20 - 40 % [facility] Monocytes Percent Auto 8.1 2 - 11 % [facility] Eosinophils Percent Auto 2.0 0 - 4 % [facility] Basophils Percent Auto 0.5 0 - 2 % [facility] NRBC Pct Auto 0.0 0.0 - 0.2 /100WBC [facility] Neutrophils Absolute Auto 5.4 2.0 - 8.3 x10*3/uL [facility] Imm Gran Abs Auto 0.02 0.00 - 0.03 X10*3/uL [facility] Lymphocytes Absolute Auto 1.8 1.2 - 4.9 X10*3/uL [facility] Monocytes Absolute Auto 0.7 0.1 - 1.2 X10*3/uL [facility] Eosinophils Absolute Auto 0.2 0.0 - 0.4 X10*3/uL [facility] Basophils Absolute Auto 0.0 0.0 - 0.2 X10*3/uL [facility] NRBC Abs Auto 0.000 0.0 - 0.012 X10*3/uL [facility] 01/04/2023 11:5 8 AM EST 01/04/2023 12:00 PM EST us Generic External Data Provider LAB BLOOD ORDERAB LES Final Result [facility] [address] [place] [phone] documented in this encounter Visit Diagnoses Diagnosis Pure hypercholesterolemia- Primary documented in this encounter Care Teams Ios Software Engineer Relationship Specialty Start Date End Date Martha Tapia MD [address] [place] [phone] PCP - General Family Medicine 02/08/20 documented as of this encounter
--- OUTSIDE RECORDS SUMMARY | 2024-07-05 14:06 | XMS_ITS | Encounter Summary ---
Author Organization [employer] Address [address] [facility] 7[address] [place] [address] Care Team Providers Care Receiving Room Clerk Name Role Phone Martha Tapia MD Primary Care Provider [phone] Encounter Details Date Type Department Care Team (Latest Contact Info) Description 03/03/2024 Orders Only [facility] MEDICINE [address] [place], [place] [phone] Martha Tapia MD [address] [place], [place] [phone] Type 2 diabetes mellitus without complication, with long-term current use of insulin ([facility]); Pure hypercholesterolemia Social History Tobacco Use Types [...] complication, with long-term current use of insulin ([facility]) Pure hypercholesterolemia documented in this encounter Care Teams Receiving Room Clerk Relationship Specialty Start Date End Date Martha Tapia MD [address] [place] [phone] PCP - General Family Medicine 02/08/20 documented as of this encounter
--- OUTSIDE RECORDS SUMMARY | 2024-07-05 14:06 | XMS_ITS | Encounter Summary ---
Author Organization [facility], Address [address] [place] [address] Phone Care Team Providers Care Supervisor Liquefaction Name Role Phone Deborah Rosario DO Primary Care Provider Unava ilable Encounter Details Date Type Department Care Team (Late st Contact Info) Description 09/22/2021 Office Communication [facility], [address] [place] [phone] Christian Colindres MD [address] [place] [address] Social History Tobacco Use Types [...] on filedocumented in this encounter Care Teams Supervisor Liquefaction Relationship Specialty Start Date End Date Deborah Rosario DO PCP - General 01/03/19 documented as of this encounter
== END 2024-07-05 14:46 | disposition home or self-care (01) ==
LOC: HO.HUSH 12:58
PROVIDERS: PCP General Practice; Visit Provider Urology
DX: N48.1 Balanitis (principal); R35.1 Nocturia
CPT/HCPCS: 54001

== ENCOUNTER → 2024-07-05 12:57 | Outpatient (BNVA) | payer MEDICARE, MEDICAID, SELFPAY | PROVIDERS: PCP General Practice; Visit Provider Urology | DX: Z13.89 Encounter for screening for other disorder (principal) ==

== ENCOUNTER 2024-08-08 08:59 | Outpatient (REF) | payer MEDICARE, MEDICAID, SELFPAY ==
[2024-08-08 17:31] LABS: Urine Cytology See Pathology rpt
== END 2024-08-08 09:00 | disposition home or self-care (01) ==
LOC: HO.LAB 08:59
PROVIDERS: PCP General Practice; Visit Provider Nurse Practitioner Family
DX: R31.29 Other microscopic hematuria (principal); N48.1 Balanitis; R35.1 Nocturia
CPT/HCPCS: 81003; 88112; 99212

== ENCOUNTER 2024-08-08 08:59 | Outpatient (AMB) | payer MEDICARE, MEDICAID, SELFPAY ==
--- NOTE | 2024-08-08 09:10 | A.OFFVIS_ITS ---
Intake Visit Reasons: 1m follow up Intake Note: Patient presents today for follow up on: Dorsal Slit Urology Medication: None Antibiotic Allergy:NONE Blood Thinner:ASPIRIN Closing Manager Required: Yes Closing Manager Services: Closing Manager Present Closing Manager Name: Chintan Cunningham Accompanied by: Self / Same As Patient Allergies No Known Allergies [No Known Allergies*] Allergy (Verified 08/08/24 09:45) Medication List - Last Reconciled 08/08/24 by DOREEN Arnett amlodipine 1 tab PO DAILY aspirin 81 mg PO DAILY atorvastatin 1 tab PO DAILY carbamazepine ER 100 mg PO BID 30 days clotrimazole 1% 1 appl topical BID empagliflozin (Jardiance) 1 tab PO QAM hydrochlorothiazide 1 tab PO DAILY insulin glargine (Lantus Solostar U-100 Insulin) 46 units subcut BEDTIME lisinopril 1 tab PO DAILY metformin 1 tab PO DAILY mupirocin 2% 1 appl topical BID HPI Comments Details: Yossi is a very pleasant 78-year-old Icelandic-speaking male patient of Dr. Tapia. He has a past medical history of nocturia, chronic renal insufficiency, hypercholesteremia, hypertension, and diabetes. He presents to the office today for follow-up status post in office dorsal slit procedure. In discussion with the patient today he denies having had any bothersome urinary issues or concerns since his dorsal slit procedure. In assessment of the patient today no open areas, lesions, and or drainage noted. The foreskin of the penis is easily retractable. When asked he does report episodes of nocturia however feels these are manageable independently. He otherwise denies urinary urgency, urinary frequency, incontinence, hematuria, dysuria, foul smelling urine, changes to urinary stream, flank pain, fever, and or chills. He is happy with his current voiding parameters. In office urinalysis results reviewed with the patient today 3+ glucosuria, trace microscopic hematuria, and trace proteinuria. We discussed at length the importance of management and diabetes for improvement in lower urinary tract symptoms, renal health, and overall health and well-being. In review of patient's chart does not appear any PSAs have been ordered or performed. He reports typically having blood work with his PCP every 3 months however does not recall PSA. All questions were answered. He otherwise offers no other issues or concerns at this time. [facility] Medical History (Updated 08/08/24 @ 09:51 by DOREEN Arnett) Nocturia Chronic renal insufficiency Elevated cholesterol Hypertension Diabetes mellitus type 1 Surgical History Hx of cataract extraction H/O colonoscopy Social History Patient Tobacco Use Status: Never used Tobacco Review of Systems Const All systems reviewed & are unremarkable except as noted in HPI and below Physical Exam Const General: cooperative, comfortable, no acute distress, well developed, alert and awake Orientation/consciousness: patient oriented x3 Limitations: language barrier HEENT Head: Yes normal to inspection, Yes normocephalic and Yes atraumatic Ears: hearing grossly normal bilaterally Eyes General: appearance normal, both eyes and all related structures Neck Neck: Yes normal visual inspection and Yes trachea midline Chest Chest palpation & inspection: normal inspection of the chest Resp Effort & Inspection: normal respiratory effort and able to speak in complete sentences Cardio Rate: regular rate GI Inspection: Yes normal to inspection Other: As per HPI General: Yes no CVA tenderness Back/Spine/Pelvis Back: no CVA tenderness Skin General skin exam: no rashes or lesions noted Neuro General: patient oriented x3 Extrem General: Yes normal to inspection Psych Appearance: grossly normal and well kempt Mental Status: mental status grossly normal Speech and movement: Normal speech and movement present and Clear speech present Affect: normal affect Attitude: cooperative Thought process: Normal thought process present Thought content: Normal thought content present Results AMB Urinalysis, Automated UA Leukoctes 0 Zhanna/uL Last Edit by JULISSA Gamez on 08/08/24 09:29 UA Nitrite Last Edit by JULISSA Gamez on 08/08/24 09:29 UA Urobilinogen 0.2 mg/dL Last Edit by JULISSA Gamez on 08/08/24 09:2 9 UA Protein 15 mg/dL Last Edit by JULISSA Gamez on 08/08/24 09:29 UA pH 6.0 Last Edit by Mansoor Malik [facility] on 08/08/24 09:29 UA Blood 10 Jh/uL Last Edit by Mansoor Malik [facility] on 08/08/24 09:29 UA Specific [place] 1.015 Last Edit by Mansoor Malik [facility] on 08/08/24 09: 29 UA Ketone Last Edit by Mansoor Malik [facility] on 08/08/24 09:29 UA Bilirubin 0 mg/dL Last Edit by Mansoor Malik [facility] on 08/08/24 09:29 UA Glucose 1000 mg/dL Last Edit by Mansoor Malik [facility] on 08/08/24 09:29 Results Reviewed Results Reviewed: Laboratory Last Values Urine pH (Auto) 6.0 08/08/24 09:13 Specific [place] (Auto) 1.015 08/08/24 09:13 Urine Protein (Auto) 15 mg/dL 08/08/24 09:13 Glucose (UA)(Auto) 1000 mg/dL 08/08/24 09:13 Urine Blood (Auto) 10 Jh/uL 08/08/24 09:13 Urine Bilirubin (Auto) 0 mg/dL 08/08/24 09:13 Urine Urobilinogen (Auto) 0.2 mg/dL 08/08/24 09:13 Leukocyte Esterase (Auto) 0 Zhanna/uL 08/08/24 09:13 Assessment & Plan Assessment & Plan (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 Patient's penile foreskin is easily retractable. We discussed the importance of management and diabetes for improvement in overall health and well-being. Will obtain PSA for surveillance monitoring. We discussed the importance of limiting fluids 2-3 hours prior to bed to decrease episodes of nocturia. He reports be happy with current voiding parameters. Follow-up in 6 months with PSA; or sooner with any issues, concerns, and or questions. Orders: Orders AMB Urinalysis Automated Today Z13.9 - Encounter for screening, unspecified Prostate Specific Antigen Today N40.0 - Benign prostatic hyperplasia without lower urinary tract symptoms Patient Instructions: The patient had an opportunity to ask questions regarding the treatment plan. All questions were answered. Physical exam, labs, and imaging were discussed and reviewed in detail. As well as risks, benefits, and discussion of treatment choices. No major barriers to understanding were identified. The patient expressed understanding and agreement with the above treatment plan. The patient was made aware they should contact our office by phone for worsening of their current condition, the appearance of new symptoms, or with any questions or concerns. Compliance is encouraged with any medications and follow up testing that is ordered. It is a privilege to be allowed the opportunity to participate in? your urological care.? Again, if you have any questions or concerns If you have any questions or concerns please do not hesitate to contact me. The office is [phone]. This note is constructed using voice recognition software. While every effort has been made to ensure accuracy respite provider errors may have been included. Yours sincerely, DOREEN Arnett Coding Level of Care Code Est Pt Level 3 (84259) Complex EM visit Add On G2211 Diagnoses Balanitis circinata N48.1 Nocturia R35.1
== END 2024-08-08 09:41 | disposition home or self-care (01) ==
LOC: HO.HUSH 09:00
PROVIDERS: PCP General Practice; Visit Provider Nurse Practitioner Family
DX: N48.1 Balanitis (principal); R35.1 Nocturia; Z13.9 Encounter for screening, unspecified
CPT/HCPCS: 99213; G2211